=== PATIENT | male | born 1975 | race Caucasian/White ===

== ENCOUNTER 2019-12-04 03:02 | Outpatient (CLI) | payer OTHER, SELFPAY ==
[2019-12-05 09:10] LABS: CEA 13.3 ng/mL (See Note)
== END 2019-12-04 03:22 ==
PROVIDERS: Visit Provider Internal Medicine
DX: Z12.11 Encounter for screening for malignant neoplasm of colon (principal)
CPT/HCPCS: 36415; 82378

== ENCOUNTER 2020-05-28 14:19 | Emergency (ER) | payer OTHER, SELFPAY ==
[2020-05-28] VITALS (26 sets, daily range): BP systolic 113–136; BP diastolic 55–72; PULSE 72–94; RESP 13–20; TEMP 36.7; O2SAT 94–100
--- NOTE | 2020-05-28 14:15 | RT.EKG_ITS ---
APPROVED REPORT Exam: Resting ECG Patient Location: E HR:90 bpm ECG Measurements Heart Rate 90 AXIS IA 139 P 47 QRSd 104 QRS -24 QT 363 T -5 QTc 444 Conclusion Sinus rhythm...normal P axis, V-rate 60- 99 Probable left ventricular hypertrophy...multiple LVH criteria
--- NOTE | 2020-05-28 14:45 | DI.CT_ITS ---
EXAM: CT CHEST PE CTA CLINICAL HISTORY: stage 4 cancer, chest tightness, dizzy, syncope. TECHNIQUE: Imaging Protocol: CT angiography of the chest was performed using pulmonary embolus jessee col. Multi planar reconstructions were performed. CONTRAST MATERIAL: Intravenous: Omnipaque 350 Contrast volume: 100 cc COMPARISON: No exams were available for comparison FINDINGS: CHEST: Distal tip of the right supraclinoid in Port-A-Cath is in the upper right atrium PULMONARY ARTERIES: There are no intraluminal filling defects to suggest acute pulmonary emboli. LUNGS: There are no infiltrates nor evidence of pulmonary infarction.. However, there is a pleural ba sed noncalcified 8 x 7 millimeter nodule in the lingular segment the left lung. No other pulmonary n odules nor pleural effusions. Dependent increased markings are noted both lung bases. No focal find ings in the trachea mainstem bronchi. There are no pleural effusions. MEDIASTINUM: There is no hilar nor mediastinal adenopathy. Visualized thyroid contains a small nodule anteriorly in the right lobe. There entire thyroid is not included in the field of view. CARDIAC: Heart size is normal. There is no pericardial effusion.Caliber of the thoracic aorta is wit hin normal limits. There is an anatomic variant here in that the left vertebral artery originates as an independent vessel off the aortic arch instead of originating off of the left subclavian artery. It arises just proximal to the left subclavian artery takeoff point. There is no evidence of shift o f the interventricular septum. PARTIALLY VISUALIZED UPPERMOST ABDOMEN: No obvious findings OSSEOUS: No significant osseous lesions.. IMPRESSION: 1. No evidence of acute pulmonary emboli. No evidence of pulmonary infarction.No pleural effusions. 2. There is a pleural based 8 millimeter nodule in the lingular segment of the left lung. Given the history. This is suspicious for a possible metastatic lesion priors appropriate follow-up. There ar e no other focal pulmonary nodules. There are no pleural effusions 3. Port-A-Cath in place. Distal tip is in the upper right atrium. RADIATION DOSE DELIVERED: LINK-TO-SR Total DLP DATA REPOSITORY: All CT scans at this facility are submitted to the National Radiology Data Registry (NRDR) Dose Index Registry (DIR) with the [employer] (ACR). RADIATION OPTIMIZATION: All CT scans at this facility use at least one of these dose optimization te chniques: automated exposure control; mA and/or kV adjustment per patient size (includes targeted exa ms where dose is matched to clinical indication); or iterative reconstruction.
[2020-05-28 15:01] LABS: Abs Immature Grans 0.03 10^3/uL (0.0-0.06); Absolute Basophil Count 0.01 10^3/uL (0.0-0.2); Absolute Eosinophil Count 0.01 10^3/uL (0.0-0.7); Absolute Lymphocyte Count 2.26 10^3/uL (1.2-3.4); Absolute Monocyte Count 0.52 10^3/uL (0.1-0.8); Absolute Neutrophil Count 5.13 10^3/uL (1.2-6.7); Basophils % 0.1; Eosinophils % 0.1; HCT 24.4 % (40.0-50.0); HGB 7.3 g/dL (13.5-17.5); Immature Grans % 0.4; Lymphocytes % 28.4; MCH 28.5 pg (27.0-33.0); MCHC 29.9 % (32.0-36.0); MCV 95.3 fL (80-95); MPV 8.8 fL (8.0-11.0); Monocytes % 6.5; Neutrophils % 64.5; Nucleated RBC 0 %; Platelet Count 288 10^3/uL (130-400); RBC 2.56 10^6/uL (4.36-5.78); RDW 18.7 % (11.8-14.1); WBC 7.96 10^3/uL (4.4-10.8)
[2020-05-28 15:12] LABS: Diff Comment RBC Morph Reviewed
[2020-05-28 15:13] LABS: Anisocytosis 2+; Hypochromasia 2+; Microcytosis 2+
[2020-05-28 15:23] LABS: ALT 24 U/L (16-63); AST 17 U/L (15-37); Albumin 2.7 g/dL (3.4-5.0); Alkaline Phosphatase 50 U/L (46-116); Anion Gap 7.7 mmol/L (3-11); BUN 30 mg/dL (7-18); Bilirubin, Total 0.5 mg/dL (0.2-1.0); CO2 27.3 mmol/L (21.0-32.0); CREATININE 1.41 mg/dL (0.70-1.30); Calcium 8.6 mg/dL (8.5-10.1); Chloride 108 mmol/L (98-107); Estimated GFR 54.11 (mL/min/1.73m2); Glucose 95 mg/dL (74-106); Sodium 143 mmol/L (136-145); Total Protein 5.7 g/dL (6.4-8.2)
[2020-05-28 15:35] LABS: Troponin I < 0.05 ng/mL (<0.06)
[2020-05-28] MEDS: Omnipaque 350 MG/ML 100 ML BTL IJ (16:07)
[2020-05-28] MEDS: Normal Saline - Diluent 50 ML VIAL IV (16:08)
--- NOTE | 2020-05-28 16:32 | DI.VRAD_ITS ---
PROCEDURE INFORMATION: Exam: CT Angiography Chest With Contrast Exam date and time: 05/28/2020 3:58 PM Age: 44 years old Clinical indication: Patient HX: Stage 4 cancer, chest tightness, dizzy, syncope TECHNIQUE: Imaging protocol: Computed tomographic angiography of the chest with intravenous contrast. 3D rendering (Not supervised by radiologist): MIP and/or 3D reconstructed images were created by the technologist. COMPARISON: No relevant prior studies available. FINDINGS: Pulmonary arteries: Contrast fills the pulmonary artery and its branch vessels satisfactorily. No intraluminal filling defect to suggest pulmonary embolism. Aorta: Unremarkable. No aortic aneurysm. No aortic dissection. Lungs: Lower lobe dependent posterior atelectasis. Pleural space: Lingular pleural-based anterolateral 8 mm pulmonary nodule best seen on series 9, image 31. No pleural effusion or pneumothorax. Heart: Unremarkable. No cardiomegaly. No pericardial effusion. Lymph nodes: Unremarkable. No enlarged lymph nodes. Bones/joints: Unremarkable. No acute fracture. Soft tissues: Right upper chest wall Port-A-Cath with its tip in the distal SVC.. IMPRESSION: 1. No pulmonary embolism. 2. An 8 mm lingular pulmonary nodule suspicious for metastasis. Dictated and Authenticated by: Garcia Morrow MD. Ordering:TENISHA Stone MD
--- NOTE | 2020-05-28 16:44 | W.ED.GENAD ---
Discharge Plan Disposition Patient Disposition: [facility] Condition: Serious Discharge Details Clinical Impression: Anemia, Syncope, Chest pain Primary Care Provider: None,None ED Provider: Chase Lira Home Meds and New Rx's Prescriptions: No Action bupropion HCl [Wellbutrin SR] 150 mg Tablet Sustained-Release 12 Hr 150 mg PO BID RF: 0 diphenoxylate-atropine [Lomotil] 2.5-0.025 mg Tablet 2 tab PO QID PRNRF: 0 lisinopril 10 mg Tablet 20 mg PO QAM RF: 0 lorazepam [Ativan] 1 mg Tablet 1 mg PO TID RF: 0 magnesium 250 mg Tablet 250 mg PO BID RF: 0 multivitamin Tablet 1 tab PO DAILY RF: 0 oxycodone [Roxicodone] 5 mg Tablet 5 - 10 mg PO Q4H PRNRF: 0 prochlorperazine maleate [Compazine] 10 mg Tablet 10 mg PO Q6H PRNRF: 0 rosuvastatin [Crestor] 20 mg Tablet 20 mg PO HS RF: 0 ruxolitinib 10 mg Tablet 10 mg PO BID RF: 0 sertraline 50 mg Tablet 50 mg PO DAILY RF: 0 zolpidem [Ambien] 5 mg Tablet 5 mg PO HS PRNRF: 0 Discharge Data Discharge Date/Time-TO BE ENTERED AT DEPARTURE: 05/28/20 18:35 Medical Decision Making 44-year-old male with history of stage IV colon cancer, recurrent, 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 Patient had an episode of chest discomfort after the syncope. Chest pain now resolved. Patient is hemodynamically stable. Screening ECG was reviewed and interpreted by me: Please see report, sinus rhythm 90 bpm, LVH, no STEMI, nondiagnostic. Initial troponin negative. Considered acute life-threatening pulmonary embolism. CT of the chest was reviewed and interpreted by radiology:FINDINGS: Pulmonary arteries: Contrast fills the pulmonary artery and its branch vessels satisfactorily. No intraluminal filling defect to suggest pulmonary embolism. Aorta: Unremarkable. No aortic aneurysm. No aortic dissection. Lungs: Lower lobe dependent posterior atelectasis. Pleural space: Lingular pleural-based anterolateral 8 mm pulmonary nodule best seen on series 9, image 31. No pleural effusion or pneumothorax. Heart: Unremarkable. No cardiomegaly. No pericardial effusion. Lymph nodes: Unremarkable. No enlarged lymph nodes. Bones/joints: Unremarkable. No acute fracture. Soft tissues: Right upper chest wall Port-A-Cath with its tip in the distal SVC.. IMPRESSION: 1. No pulmonary embolism. 2. An 8 mm lingular pulmonary nodule suspicious for metastasis. Screening labs reviewed and anemia with hemoglobin of 7.3 noted. Consider symptomatic anemia. I called and spoke with oncologist [facility] discussed [place] presentation and course, she recommended transfusion 1 unit of PRBCs. She notes PVCs must be irradiated given prior transfusion. Unfortunately [facility] does not have irradiated PRBCs available until Monday. I discussed this with on-call oncologist who recommends attempting to identify another local hospital who can provide transfusion. I called and spoke with [facility] ED physician, Dr. Tyler, who notes [facility] does not currently have irradiated blood. I called and spoke with [facility] ED physician, Dr. Felix, who notes that [place] does have 1 unit of irradiated PRBCs and will accept the patient in transfer to assume care of the patient and plan to provide required transfusion. I spoke with patient about results and plan and he is in agreement and consents to transfer. Lab Data Lab results reviewed: Yes I reviewed the patient's lab results. Lab results narrative: Laboratory Tests Range/Units 05/28/20 05/28/20 14:45 14:45 WBC (4.4-10.8) 10^3/uL 7.96 RBC (4.36-5.78) 10^6/uL 2.56 L Hgb (13.5-17.5) g/dL 7.3 L Hct (40.0-50.0) % 24.4 L MCV (80-95) fL 95.3 H MCH (27.0-33.0) pg 28.5 MCHC (32.0-36.0) % 29.9 L RDW (11.8-14.1) % 18.7 H Plt Count (130-400) 10^3/uL 288 MPV (8.0-11.0) fL 8.8 Immature Gran % 0.4 Neutrophils % 64.5 Lymphocytes % 28.4 Monocytes % 6.5 Eosinophils % 0.1 Basophils % 0.1 Nucleated RBC % % 0 Absolute Neutrophils (1.2-6.7) 10^3/uL 5.13 Absolute Lymphocytes (1.2-3.4) 10^3/uL 2.26 Absolute Monocytes (0.1-0.8) 10^3/uL 0.52 Absolute Eosinophils (0.0-0.7) 10^3/uL 0.01 Absolute Basophils (0.0-0.2) 10^3/uL 0.01 RBC Morphology See below Hypochromasia 2+ Anisocytosis 2+ Microcytosis 2+ Sodium (136-145) mmol/L 143 Potassium (3.5-5.1) mmol/L 4.0 Chloride (98-107) mmol/L 108 H Carbon Dioxide (21.0-32.0) mmol/L 27.3 Anion Gap (3-11) mmol/L 7.7 BUN (7-18) mg/dL 30 H Creatinine (0.70-1.30) mg/dL 1.41 H Estimated GFR/1.73 m2 (mL/min/1.73m2) 54.11 Glucose (74-106) mg/dL 95 Calcium (8.5-10.1) mg/dL 8.6 Total Bilirubin (0.2-1.0) mg/dL 0.5 AST (15-37) U/L 17 ALT (16-63) U/L 24 Alkaline Phosphatase (46-116) U/L 50 Troponin I (<0.06) ng/mL < 0.05 Total Protein (6.4-8.2) g/dL 5.7 L Albumin (3.4-5.0) g/dL 2.7 L HPI General Mode of arrival: ambulatory. Date/Time Provider Initiated Documentation: 05/28/20 14:20. Limitations to Documentation: no limitations. Information obtained by: patient. 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 Patient was completing his 46-hour course of chemotherapy and at the cancer treatment center for discontinuation, he felt dizzy and collapsed. Syncopal episode was brief. Severe. No modifiers. Patient notes that after the episode he had mild chest discomfort described as tightness that has since resolved prior to arrival. He denies shortness of breath or chest pain at this time. No abdominal pain. No leg swelling. Related Data Home Medications Medication Instructions Recorded Confirmed bupropion HCl [Wellbutrin SR] 150 mg PO BID 05/28/20 05/28/20 diphenoxylate-atropine [Lomotil] 2 tab PO QID PRN 05/28/20 05/28/20 lisinopril 20 mg PO QAM 05/28/20 05/28/20 lorazepam [Ativan] 1 mg PO TID 05/28/20 05/28/20 magnesium 250 mg PO BID 05/28/20 05/28/20 multivitamin 1 tab PO DAILY 05/28/20 05/28/20 oxycodone [Roxicodone] 5 - 10 mg PO Q4H PRN 05/28/20 05/28/20 prochlorperazine maleate 10 mg PO Q6H PRN 05/28/20 05/28/20 [Compazine] rosuvastatin [Crestor] 20 mg PO HS 05/28/20 05/28/20 ruxolitinib 10 mg PO BID 05/28/20 05/28/20 sertraline 50 mg PO DAILY 05/28/20 05/28/20 zolpidem [Ambien] 5 mg PO HS PRN 05/28/20 05/28/20 Allergies Allergy/AdvReac Type Severity Reaction Status Date / Time No Known Allergies Allergy Unverified 05/28/20 14:27 General Stated Complaint: Dizzy/Sync JAIMIE: 2 Review of Systems All systems reviewed & are unremarkable except as noted in HPI and below Constitutional Constitutional: Denies fever(s) Cardiovascular Cardiovascular: Denies chest pain and Denies dyspnea Respiratory Respiratory: Denies dyspnea [facility] History Colon cancer Surgical History Bone marrow replaced by transplant Social History Smoking/Tobacco Use Status: Never Smoking risk assessment performed?: Yes Alcohol Intake: current Alcohol Intake frequency: holidays/special occasions only Substance use type: marijuana Details: medical marijuana Do you feel safe at home: Yes Do you feel safe in your relationship?: Yes Exam Const General: cooperative and no acute distress HENMT Mouth: moist mucous membranes Eyes Conjunctivae: normal conjunctivae Sclera: normal sclerae Neck Neck: trachea midline and supple Resp Auscultation: clear to auscultation bilaterally, no rales, no rhonchi and no wheezes Cardio Jugular venous pressure: no JVD Rate: regular rate and not tachycardic Rhythm: regular rhythm GI Palpation: soft, not firm, no guarding, no masses, not rigid and nontender Skin General skin exam: no rashes or lesions noted Neuro General: patient alert, patient awake, patient oriented x3 and tone normal Extrem General: no calf tenderness and no edema Psych Appearance: grossly normal Mental Status: mental status grossly normal Speech and Movement: speech and movement normal Course Vital Signs Vital signs: Vital Signs Temperature 36.7 C 05/28/20 14:19 Pulse 90 05/28/20 14:19 Respiratory Rate 14 05/28/20 14:19 Blood Pressure 136/69 05/28/20 14:19 Pulse Oximetry 97 05/28/20 14:19 Temperature 36.7 C 05/28/20 14:19 Temperature Source Skin 05/28/20 14:19 Pulse 77 05/28/20 16:09 Pulse 78 05/28/20 16:15 Respiratory Rate 16 05/28/20 16:15 Respiratory Effort Non-Labored 05/28/20 14:31 Respiratory Depth Normal 05/28/20 14:31 Respiratory Pattern Normal 05/28/20 14:31 Blood Pressure 118/62 05/28/20 16:09 Blood Pressure Mean 74 05/28/20 16:09 Pulse Oximetry 96 05/28/20 16:15 Oxygen Delivery Method Room Air 05/28/20 14:19 Oxygen Flow Rate 0 05/28/20 14:19 Pain Level 0 05/28/20 14:19 Lab/Test Results Lab/Test Results: Laboratory Tests Range/Units 05/28/20 05/28/20 14:45 14:45 WBC (4.4-10.8) 10^3/uL 7.96 RBC (4.36-5.78) 10^6/uL 2.56 L Hgb (13.5-17.5) g/dL 7.3 L Hct (40.0-50.0) % 24.4 L MCV (80-95) fL 95.3 H MCH (27.0-33.0) pg 28.5 MCHC (32.0-36.0) % 29.9 L RDW (11.8-14.1) % 18.7 H Plt Count (130-400) 10^3/uL 288 MPV (8.0-11.0) fL 8.8 Immature Gran % 0.4 Neutrophils % 64.5 Lymphocytes % 28.4 Monocytes % 6.5 Eosinophils % 0.1 Basophils % 0.1 Nucleated RBC % % 0 Absolute Neutrophils (1.2-6.7) 10^3/uL 5.13 Absolute Lymphocytes (1.2-3.4) 10^3/uL 2.26 Absolute Monocytes (0.1-0.8) 10^3/uL 0.52 Absolute Eosinophils (0.0-0.7) 10^3/uL 0.01 Absolute Basophils (0.0-0.2) 10^3/uL 0.01 RBC Morphology See below Hypochromasia 2+ Anisocytosis 2+ Microcytosis 2+ Sodium (136-145) mmol/L 143 Potassium (3.5-5.1) mmol/L 4.0 Chloride (98-107) mmol/L 108 H Carbon Dioxide (21.0-32.0) mmol/L 27.3 Anion Gap (3-11) mmol/L 7.7 BUN (7-18) mg/dL 30 H Creatinine (0.70-1.30) mg/dL 1.41 H Estimated GFR/1.73 m2 (mL/min/1.73m2) 54.11 Glucose (74-106) mg/dL 95 Calcium (8.5-10.1) mg/dL 8.6 Total Bilirubin (0.2-1.0) mg/dL 0.5 AST (15-37) U/L 17 ALT (16-63) U/L 24 Alkaline Phosphatase (46-116) U/L 50 Troponin I (<0.06) ng/mL < 0.05 Total Protein (6.4-8.2) g/dL 5.7 L Albumin (3.4-5.0) g/dL 2.7 L
[2020-05-28 18:16] LABS: Troponin I < 0.05 ng/mL (<0.06)
== END 2020-05-28 18:35 | disposition short-term general hospital (02) ==
PROVIDERS: Emergency Provider Student in an Organized Health Care Education/Training Program
DX: R55 Syncope and collapse (principal); R07.89 Other chest pain; R91.1 Solitary pulmonary nodule; D64.9 Anemia, unspecified; C18.9 Malignant neoplasm of colon, unspecified; Z79.899 Other long term (current) drug therapy; Z45.2 Encounter for adjustment and management of vascular access device; Z94.81 Bone marrow transplant status
CPT/HCPCS: 36591; 71275; 80053; 86850; 86900; 86901; 93005; 99285; 84484; 85025; 93010; J3490

== ENCOUNTER 2020-09-07 12:20 | Outpatient (CLI) | payer OTHER, SELFPAY ==
[2020-09-07 12:46] LABS: Abs Immature Grans 0.02 10^3/uL (0.0-0.06); Absolute Basophil Count 0.01 10^3/uL (0.0-0.2); Absolute Eosinophil Count 0.02 10^3/uL (0.0-0.7); Absolute Lymphocyte Count 2.07 10^3/uL (1.2-3.4); Absolute Monocyte Count 0.63 10^3/uL (0.1-0.8); Absolute Neutrophil Count 2.13 10^3/uL (1.2-6.7); Basophils % 0.2; Eosinophils % 0.4; HCT 26.6 % (40.0-50.0); HGB 8.9 g/dL (13.5-17.5); Immature Grans % 0.4; Lymphocytes % 42.4; MCHC 33.5 % (32.0-36.0); MCV 89.6 fL (80-95); MPV 8.8 fL (8.0-11.0); Monocytes % 12.9; Neutrophils % 43.7; Nucleated RBC 0 %; Platelet Count 190 10^3/uL (130-400); RBC 2.97 10^6/uL (4.36-5.78); RDW-SD 48.8 fL; WBC 4.88 10^3/uL (4.4-10.8)
[2020-09-07 13:00] LABS: Diff Comment Diff Reviewed; RBC Morphology Normal
== END 2020-09-07 12:21 | disposition home or self-care (01) ==
LOC: LBO 12:23
PROVIDERS: Referring Provider Internal Medicine Hematology & Oncology; Visit Provider Internal Medicine Hematology & Oncology
DX: C20 Malignant neoplasm of rectum (principal); C78.00 Secondary malignant neoplasm of unspecified lung
CPT/HCPCS: 36415; 86900; 86901; 85025

== ENCOUNTER 2021-02-16 14:13 | Outpatient (RCR) | payer OTHER, SELFPAY ==
[2021-02-16] MEDS: Normal Saline Flush 10 ML SYR IVP (14:26)
[2021-02-16] MEDS: Heparin 500 UNITS/5 ML SYRINGE IV (14:26)
[2021-02-16 14:34] LABS: HCT 28.3 % (40.0-50.0); HGB 9.5 g/dL (13.5-17.5); MCH 30.4 pg (27.0-33.0); MCHC 33.6 % (32.0-36.0); MCV 90.4 fL (80-95); MPV 9.5 fL (8.0-11.0); Nucleated RBC 0 %; Platelet Count 136 10^3/uL (130-400); RBC 3.13 10^6/uL (4.36-5.78); RDW 14.9 % (11.8-14.1); RDW-SD 47.9 fL; WBC 6.22 10^3/uL (4.4-10.8)
[2021-02-16 14:48] LABS: Absolute Lymphocyte Count 1.43 10^3/uL (1.2-3.4); Absolute Neutrophil Count 4.73 10^3/uL (1.2-6.7)
[2021-02-16 14:49] LABS: Absolute Monocyte Count 0.06 10^3/uL (0.1-0.8); Diff Comment Manual Differential; RBC Morphology Normal
== END 2021-02-25 23:59 | disposition home or self-care (01) ==
LOC: INF 14:13
PROVIDERS: Visit Provider Internal Medicine Hematology & Oncology
DX: C20 Malignant neoplasm of rectum (principal); C78.00 Secondary malignant neoplasm of unspecified lung; Z45.2 Encounter for adjustment and management of vascular access device
CPT/HCPCS: 36591; 86850; 86900; 86901; 85025

== ENCOUNTER 2021-03-17 01:25 | Outpatient (RCR) | payer OTHER, SELFPAY ==
[2021-03-03] MEDS: Heparin 500 UNITS/5 ML SYRINGE IV (08:13)
[2021-03-03] MEDS: Normal Saline Flush 10 ML SYR IVP (08:13)
[2021-03-03 08:41] LABS: Abs Immature Grans 0.18 10^3/uL (0.0-0.06); Absolute Basophil Count 0.03 10^3/uL (0.0-0.2); Absolute Eosinophil Count 0.13 10^3/uL (0.0-0.7); Absolute Lymphocyte Count 2.16 10^3/uL (1.2-3.4); Absolute Monocyte Count 1.33 10^3/uL (0.1-0.8); Basophils % 0.3; Eosinophils % 1.1; HCT 30.1 % (40.0-50.0); HGB 9.6 g/dL (13.5-17.5); Immature Grans % 1.6; Lymphocytes % 18.9; MCH 29.8 pg (27.0-33.0); MCHC 31.9 % (32.0-36.0); MCV 93.5 fL (80-95); Monocytes % 11.6; Neutrophils % 66.5; Nucleated RBC 0 %; Platelet Count 371 10^3/uL (130-400); RBC 3.22 10^6/uL (4.36-5.78); RDW 15.7 % (11.8-14.1); RDW-SD 53.2 fL; WBC 11.45 10^3/uL (4.4-10.8)
[2021-03-03 08:47] LABS: ALT 46 U/L (16-63); AST 23 U/L (15-37); Albumin 3.7 g/dL (3.4-5.0); Alkaline Phosphatase 71 U/L (46-116); Anion Gap 6.5 mmol/L (3-11); BUN 24 mg/dL (7-18); Bilirubin, Total 0.4 mg/dL (0.2-1.0); CO2 28.5 mmol/L (21.0-32.0); CREATININE 3.2 mg/dL (0.70-1.30); Calcium 9.2 mg/dL (8.5-10.1); Chloride 107 mmol/L (98-107); Estimated GFR 20.92 (mL/min/1.73m2); Glucose 96 mg/dL (74-106); Potassium 4.7 mmol/L (3.5-5.1); Sodium 142 mmol/L (136-145); Total Protein 6.8 g/dL (6.4-8.2)
[2021-03-03 08:48] LABS: Absolute Neutrophil Count 7.61 10^3/uL (1.2-6.7)
[2021-03-03 18:04] LABS: CEA 2.4 ng/mL (See Note)
[2021-03-10 10:35] LABS: Abs Immature Grans 0.03 10^3/uL (0.0-0.06); Absolute Basophil Count 0.02 10^3/uL (0.0-0.2); Absolute Eosinophil Count 0.03 10^3/uL (0.0-0.7); Absolute Lymphocyte Count 1.44 10^3/uL (1.2-3.4); Absolute Monocyte Count 0.17 10^3/uL (0.1-0.8); Absolute Neutrophil Count 5.81 10^3/uL (1.2-6.7); Basophils % 0.3; Eosinophils % 0.4; HCT 26.8 % (40.0-50.0); HGB 8.5 g/dL (13.5-17.5); Immature Grans % 0.4; Lymphocytes % 19.2; MCH 30.1 pg (27.0-33.0); MCHC 31.7 % (32.0-36.0); MPV 8.6 fL (8.0-11.0); Monocytes % 2.3; Neutrophils % 77.4; Nucleated RBC 0 %; Platelet Count 212 10^3/uL (130-400); RBC 2.82 10^6/uL (4.36-5.78)
[2021-03-10 10:48] LABS: ALT 48 U/L (16-63); AST 28 U/L (15-37); Albumin 3.7 g/dL (3.4-5.0); Alkaline Phosphatase 98 U/L (46-116); Anion Gap 10.2 mmol/L (3-11); BUN 46 mg/dL (7-18); Bilirubin, Total 0.5 mg/dL (0.2-1.0); CO2 24.8 mmol/L (21.0-32.0); CREATININE 3.1 mg/dL (0.70-1.30); Calcium 9.5 mg/dL (8.5-10.1); Chloride 105 mmol/L (98-107); Estimated GFR 21.71 (mL/min/1.73m2); Glucose 113 mg/dL (74-106); Potassium 5.2 mmol/L (3.5-5.1); Sodium 140 mmol/L (136-145); Total Protein 7.6 g/dL (6.4-8.2)
[2021-03-10 11:02] LABS: RBC Morphology Normal
[2021-03-10 11:03] LABS: Diff Comment RBC Morph Reviewed
[2021-03-10 17:10] LABS: CEA 2.3 ng/mL (See Note)
[2021-03-16 09:18] LABS: Abs Immature Grans 0.02 10^3/uL (0.0-0.06); Absolute Basophil Count 0.03 10^3/uL (0.0-0.2); Absolute Eosinophil Count 0.08 10^3/uL (0.0-0.7); Absolute Lymphocyte Count 1.69 10^3/uL (1.2-3.4); Absolute Monocyte Count 0.59 10^3/uL (0.1-0.8); Basophils % 0.5; Eosinophils % 1.5; HCT 26.7 % (40.0-50.0); HGB 8.6 g/dL (13.5-17.5); Immature Grans % 0.4; Lymphocytes % 30.7; MCH 29.7 pg (27.0-33.0); MCHC 32.2 % (32.0-36.0); MCV 92.1 fL (80-95); MPV 9.3 fL (8.0-11.0); Monocytes % 10.7; Neutrophils % 56.2; Nucleated RBC 0 %; Platelet Count 182 10^3/uL (130-400); RDW 14.7 % (11.8-14.1); RDW-SD 49.2 fL; WBC 5.51 10^3/uL (4.4-10.8)
[2021-03-16 09:33] LABS: ALT 31 U/L (16-63); AST 17 U/L (15-37); Albumin 3.6 g/dL (3.4-5.0); Alkaline Phosphatase 80 U/L (46-116); Anion Gap 8.7 mmol/L (3-11); BUN 38 mg/dL (7-18); Bilirubin, Total 0.3 mg/dL (0.2-1.0); CO2 25.3 mmol/L (21.0-32.0); CREATININE 2.3 mg/dL (0.70-1.30); Calcium 8.9 mg/dL (8.5-10.1); Chloride 107 mmol/L (98-107); Estimated GFR 30.63 (mL/min/1.73m2); Glucose 100 mg/dL (74-106); Potassium 4.8 mmol/L (3.5-5.1); Sodium 141 mmol/L (136-145); Total Protein 6.7 g/dL (6.4-8.2)
[2021-03-17 08:31] VITALS: BP 94/58; PULSE 85; RESP 17; TEMP 36.2; O2SAT 99
[2021-03-17] MEDS: Normal Saline Flush 10 ML SYR IVP (08:36)
[2021-03-17] MEDS: Heparin 500 UNITS/5 ML SYRINGE IV (08:36)
[2021-03-17 08:42] VITALS: BP 96/58; PULSE 85; RESP 17; TEMP 36.1; O2SAT 98
[2021-03-17 08:45] VITALS: BP 96/58; PULSE 85; RESP 18; TEMP 36.1; O2SAT 98
[2021-03-17 08:57] VITALS: BP 93/53; PULSE 79; RESP 17; TEMP 36.2; O2SAT 99
[2021-03-17 09:27] VITALS: BP 96/61; PULSE 74; RESP 17; TEMP 36.4; O2SAT 99
[2021-03-17 10:27] VITALS: BP 100/63; PULSE 74; RESP 17; TEMP 36.6; O2SAT 99
== END 2021-03-28 23:59 | disposition home or self-care (01) ==
LOC: INF 01:25
PROVIDERS: Visit Provider Internal Medicine Hematology & Oncology
DX: D64.9 Anemia, unspecified (principal); C20 Malignant neoplasm of rectum; C78.00 Secondary malignant neoplasm of unspecified lung; Z45.2 Encounter for adjustment and management of vascular access device
CPT/HCPCS: 36415; 36430; 36591; 80053; 86850; 86900; 86901; 86920; 86945; 82378; 85025; P9016

== ENCOUNTER 2021-05-27 11:00 | Outpatient (RCR) | payer OTHER, SELFPAY ==
[2021-05-27] MEDS: Heparin 500 UNITS/5 ML SYRINGE (10:23)
[2021-05-27] MEDS: Normal Saline Flush 10 ML SYR IVP (10:25)
[2021-05-27 10:57] LABS: Iron 80 ug/dL (65-175); Total Iron Binding Capacity 313 ug/dL (250-450); Transferrin Sat 26 % (20-55)
[2021-05-27 11:21] LABS: Vitamin B12 517 pg/mL (193-986)
[2021-05-27 11:25] LABS: Ferritin 1250 ng/mL (26-388)
[2021-05-27 17:03] LABS: CREATININE 1.7 mg/dL (0.70-1.30); Estimated GFR 43.42 (mL/min/1.73m2)
== END 2021-05-28 23:59 | disposition home or self-care (01) ==
LOC: INF 11:00
PROVIDERS: Visit Provider Internal Medicine Hematology & Oncology
DX: D64.9 Anemia, unspecified (principal); N17.9 Acute kidney failure, unspecified; Z45.2 Encounter for adjustment and management of vascular access device
CPT/HCPCS: 36591; 82565; 82607; 82728; 83540; 83550

== ENCOUNTER 2021-06-24 14:24 | Outpatient (RCR) | payer OTHER, SELFPAY ==
[2021-06-24] MEDS: Heparin 500 UNITS/5 ML SYRINGE (14:34)
[2021-06-24] MEDS: Normal Saline Flush 10 ML SYR IVP (14:40)
[2021-06-24 14:59] LABS: ALT 17 U/L (16-63); AST 6 U/L (15-37); Albumin 3.7 g/dL (3.4-5.0); Alkaline Phosphatase 50 U/L (46-116); Anion Gap 8.6 mmol/L (3-11); BUN 24 mg/dL (7-18); Bilirubin, Total 0.3 mg/dL (0.2-1.0); CO2 26.4 mmol/L (21.0-32.0); CREATININE 1.4 mg/dL (0.70-1.30); Calcium 8.7 mg/dL (8.5-10.1); Chloride 107 mmol/L (98-107); Estimated GFR 54.32 (mL/min/1.73m2); Glucose 114 mg/dL (74-106); Sodium 142 mmol/L (136-145); Total Protein 6.4 g/dL (6.4-8.2)
== END 2021-06-28 23:59 | disposition home or self-care (01) ==
LOC: INF 14:24
PROVIDERS: Visit Provider Internal Medicine Hematology & Oncology
DX: C20 Malignant neoplasm of rectum (principal); C78.00 Secondary malignant neoplasm of unspecified lung; Z45.2 Encounter for adjustment and management of vascular access device
CPT/HCPCS: 36591; 80053

== ENCOUNTER 2021-07-21 00:58 | Outpatient (RCR) | payer OTHER, SELFPAY ==
[2021-07-21] MEDS: Normal Saline Flush 10 ML SYR IVP (15:13)
[2021-07-21] MEDS: Heparin 500 UNITS/5 ML SYRINGE (15:14)
[2021-07-21 15:32] LABS: Abs Immature Grans 0.01 10^3/uL (0.0-0.06); Absolute Basophil Count 0.01 10^3/uL (0.0-0.2); Absolute Eosinophil Count 0.04 10^3/uL (0.0-0.7); Absolute Lymphocyte Count 1.88 10^3/uL (1.2-3.4); Absolute Monocyte Count 0.39 10^3/uL (0.1-0.8); Absolute Neutrophil Count 1.96 10^3/uL (1.2-6.7); Basophils % 0.2; Eosinophils % 0.9; HCT 32.1 % (40.0-50.0); HGB 10.4 g/dL (13.5-17.5); Immature Grans % 0.2; Lymphocytes % 43.8; MCH 30.5 pg (27.0-33.0); MCHC 32.4 % (32.0-36.0); MCV 94.1 fL (80-95); MPV 8.6 fL (8.0-11.0); Monocytes % 9.1; Neutrophils % 45.8; Nucleated RBC 0 %; Platelet Count 216 10^3/uL (130-400); RBC 3.41 10^6/uL (4.36-5.78); RDW 14.6 % (11.8-14.1); RDW-SD 49.6 fL; WBC 4.29 10^3/uL (4.4-10.8)
[2021-07-21 15:49] LABS: ALT 26 U/L (16-63); AST 11 U/L (15-37); Albumin 3.6 g/dL (3.4-5.0); Alkaline Phosphatase 51 U/L (46-116); Anion Gap 7.5 mmol/L (3-11); BUN 27 mg/dL (7-18); Bilirubin, Total 0.3 mg/dL (0.2-1.0); CO2 25.5 mmol/L (21.0-32.0); CREATININE 1.3 mg/dL (0.70-1.30); Calcium 8.9 mg/dL (8.5-10.1); Chloride 108 mmol/L (98-107); Estimated GFR 59.17 (mL/min/1.73m2); Glucose 120 mg/dL (74-106); Potassium 4.2 mmol/L (3.5-5.1); Sodium 141 mmol/L (136-145); Total Protein 6.4 g/dL (6.4-8.2)
== END 2021-07-26 23:59 | disposition home or self-care (01) ==
LOC: INF 00:58
PROVIDERS: Visit Provider Internal Medicine Hematology & Oncology
DX: Z45.2 Encounter for adjustment and management of vascular access device (principal); D64.9 Anemia, unspecified; C20 Malignant neoplasm of rectum; C78.00 Secondary malignant neoplasm of unspecified lung
CPT/HCPCS: 36591; 80053; 85025

== ENCOUNTER 2022-01-17 03:26 | Outpatient (RCR) | payer OTHER, SELFPAY ==
[2022-01-17] MEDS: Normal Saline Flush 10 ML SYR IVP (11:28)
[2022-01-17] MEDS: Heparin 500 UNITS/5 ML SYRINGE IV (11:28)
[2022-01-17 11:35] LABS: Abs Immature Grans 0.02 10^3/uL (0.0-0.06); Absolute Basophil Count 0.02 10^3/uL (0.0-0.2); Absolute Eosinophil Count 0.13 10^3/uL (0.0-0.7); Absolute Lymphocyte Count 1.42 10^3/uL (1.2-3.4); Absolute Monocyte Count 0.47 10^3/uL (0.1-0.8); Basophils % 0.4; Eosinophils % 2.7; HCT 30.7 % (40.0-50.0); HGB 9.8 g/dL (13.5-17.5); Immature Grans % 0.4; Lymphocytes % 29.8; MCH 28.4 pg (27.0-33.0); MCHC 31.9 % (32.0-36.0); MCV 89 fL (80-95); MPV 8.8 fL (8.0-11.0); Monocytes % 9.9; Neutrophils % 56.8; Platelet Count 292 10^3/uL (130-400); RBC 3.45 10^6/uL (4.36-5.78); RDW 15.6 % (11.8-14.1); RDW-SD 49.4 fL; WBC 4.76 10^3/uL (4.4-10.8)
[2022-01-17 11:59] LABS: ALT 33 U/L (16-63); AST 24 U/L (15-37); Albumin 3.6 g/dL (3.4-5.0); Alkaline Phosphatase 61 U/L (46-116); BUN 22 mg/dL (7-18); Bilirubin, Total 0.3 mg/dL (0.2-1.0); CREATININE 1.6 mg/dL (0.70-1.30); Calcium 8.9 mg/dL (8.5-10.1); Chloride 108 mmol/L (98-107); Estimated GFR 46.37 (mL/min/1.73m2); Glucose 167 mg/dL (74-106); Potassium 3.7 mmol/L (3.5-5.1); Sodium 143 mmol/L (136-145); Total Protein 6.7 g/dL (6.4-8.2)
== END 2022-01-26 23:59 | disposition home or self-care (01) ==
LOC: INF 03:26
PROVIDERS: Visit Provider Internal Medicine Hematology & Oncology
DX: C20 Malignant neoplasm of rectum (principal); C78.00 Secondary malignant neoplasm of unspecified lung; Z45.2 Encounter for adjustment and management of vascular access device
CPT/HCPCS: 36591; 80053; 85025

== ENCOUNTER 2022-09-07 09:40 | Observation (INO) | payer OTHER, SELFPAY ==
[2022-09-07] VITALS (21 sets, daily range): BP systolic 116–146; BP diastolic 63–72; PULSE 66–96; RESP 14–20; TEMP 37–37.7; O2SAT 92–96
--- NOTE | 2022-09-07 10:06 | DI.CT_ITS ---
Exam(s) CT ABDOMEN PELVIS WO EXAM: CT ABDOMEN PELVIS WO CLINICAL HISTORY: right flank pain, hx cancer and kid stone. TECHNIQUE: Imaging Protocol: Axial computed tomography images with coronal and sagittal reformatted images were created and reviewed CONTRAST MATERIAL: Intravenous: none Oral: None COMPARISON: CT CT CHEST PE CTA from 05/28/[address] CHEST ABDOMEN PELVIS W CONTRAST (GENERIC) from 08/03/2022 FINDINGS: VISUALIZED LUNG BASES: There are now moderate size bilateral pleural effusions, not previously presen t 1 month ago. Also multiple metastatic appearing nodules are again noted bilaterally in the partial ly visualized lung bases. ABDOMEN: There is no ascites. LIVER: There are no obvious focal hepatic lesions evident of this noninfused study. GALLBLADDER/BILIARY: No obvious gallbladder pathology. CBD is not dilated. PANCREAS: No evidence of pancreatic mass nor dilatation of the pancreatic duct. SPLEEN: Spleen is not enlarged. No obvious intrasplenic lesions. ADRENALS: There are no significant adrenal masses. KIDNEYS:Small calculus in the lower pole calyx of the left kidney again noted. Small cyst in the pos terior cortex of the left kidney again noted. Mild hydronephrosis on the left side. Distal left ure ter is. There is asymmetric density in left side of the urinary bladder. Also circumferential thick ening of the entire urinary bladder wall. Difficult to delineate. In the opposite-right kidney ther e is again noted a benign-appearing cyst in the posterior cortex measuring 3.5 x 3.3 cm. There is a small focus of calcification in the anterior wall of this cyst or medially adjacent kidney parenchyma . No hydronephrosis on the right side... ABDOMINAL AORTA: Abdominal aorta is not enlarged. LYMPH NODES: There is no retroperitoneal nor paraaortic adenopathy. ABDOMINAL WALL: No evidence of significant anterior abdominal wall nor inguinal hernia. GI: Previous subtotal colectomy. No obvious bowel obstruction. No free air. No abscess. PELVIS: LYMPH NODES: There is increasing retro aortic lymphadenopathy when compared to 1 month ago. Calcifie d lymph node anterior left side of the abdomen again noted. GI: No evidence of appendicitis.No evidence of sigmoid diverticulitis. URINARY BLADDER: Abnormal as above. REPRODUCTIVE: Prostate size minimally prominent and shifted towards the left. Also appears to involv e the left side of the urinary bladder. OSSEOUS: No significant osseous lesions. No fractures. Advanced disc space narrowing at L5-S1 level noted. IMPRESSION: 1. Compared to the outside CT scan of August 03, 2022 there are new bilateral moderate size pleural eff usions. There are also multiple bilateral metastatic your nodules in the visualized lung bases. 2. Evidence of previous subtotal colectomy. Low anastomosis but with left-sided density just above t he prostate and appearing to involve the posterior left bladder wall. The left ureter is not promine ntly dilated. Right ureter not dilated. Nonobstructive 2-3 millimeter calculus is again noted in th e lower pole left kidney. There is mild dilatation of the calices of the left kidney; not so on the right side. 3. Increasing [id number] lymphadenopathy when compared to 1 month ago. 4. Circumferential thickening of the bladder wall. Discussed with ER physician RADIATION DOSE DELIVERED: 937.56mGy.cm Total DLP DATA REPOSITORY: All CT scans at this facility are submitted to the National Radiology Data Registry (NRDR) Dose Index Registry (DIR) with the [employer] (ACR). RADIATION OPTIMIZATION: All CT scans at this facility use at least one of these dose optimization te chniques: automated exposure control; mA and/or kV adjustment per patient size (includes targeted exa ms where dose is matched to clinical indication); or iterative reconstruction.
--- NOTE | 2022-09-07 10:23 | ED.GENADUL_ITS ---
Discharge Plan Disposition Patient Disposition: Admit to [facility] Condition: Good Discharge Details Clinical Impression: Psoas muscle strain, Intra-abdominal fluid, Bladder mass, Acute kidney injury, Transaminitis Primary Care Provider: Unknown,Unknown ED Provider: Aubrey Mario Home Meds and New Rx's Prescriptions: No Action bupropion HCl [Wellbutrin SR] 150 mg Tablet Sustained-Release 12 Hr 150 mg PO BID lisinopril 10 mg Tablet 20 mg PO QAM lorazepam [Ativan] 1 mg Tablet 1 mg PO TID magnesium 250 mg Tablet 250 mg PO BID multivitamin Tablet 1 tab PO DAILY Rx Instructions: therapeutic oxycodone [Roxicodone] 5 mg Tablet 5 - 10 mg PO Q4H PRN prochlorperazine maleate [Compazine] 10 mg Tablet 10 mg PO Q6H PRN Patient Comments: not taking rosuvastatin [Crestor] 20 mg Tablet 20 mg PO HS ruxolitinib 10 mg Tablet 10 mg PO BID zolpidem [Ambien] 5 mg Tablet 5 mg PO HS PRN Patient Comments: not taking tamsulosin 0.4 mg Capsule 0.4 mg PO DAILY sertraline 100 mg Tablet 100 mg PO DAILY buprenorphine 20 mcg/hour Patch Weekly 20 mcg transdermal Q7D Medical Decision Making 47-year-old male with an unfortunate rather extensive past medical history of colon cancer and colectomy in 2010 with subsequent ostomy which was then reversed into a pouch. 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 He then had reemergence of his colon cancer in 2019 with subsequent chemotherapy over the last 2 years which they have recently stopped in May. He does have metastases to multiple locations in his body. He is currently in palliative care, and is not currently receiving additional treatment. He did have a recent kidney stone on the left within the past month, that was passed. He now has pain on his right-hand side for the last 4 days. He has been doubling up on his fentanyl patches and taking oxycodone which has not been helping his symptoms. He does admit to some frothiness noted in his urine. He denies any bowel changes. No other complaints at this time. Pain is made worse with movement or trying to eat. It is not being improved by the narcotic medications. Exam demonstrates a slightly thin and pale male, mild right CVA tenderness and mild generalized right-sided abdominal tenderness on deep palpation. Differential is notably broad and includes obstruction, kidney stone, abscess, UTI. We will evaluate for these, control the patient's pain, gently rehydrate, monitor closely and reassess. 2:37 PM Patient's laboratory work-up is returned, no white count, however the patient does demonstrate notable increase in his creatinine to 2.5, GFR of 30, BUN of 51, patient states that he has been drinking regularly though. AST and ALT are elevated compared to normal. Lipase normal. Urinalysis shows RBCs and WBCs. CT scan shows evidence of fluid adjacent to the right psoas muscle which is the location of the patient's pain which is worsened with movement. No evidence of abscess so at this point. Patient's pain is feeling better with a significant amount of narcotics. There is evidence of bladder thickening and a mass on CT scan, as well as notable increase with lymphadenopathy. Out of concern for this fluid collection, and the patient's worsening renal function, transaminitis, and notable pain, I do feel that he would benefit from admission for management of all this. Since he receives majority of his care all at [facility], we did reach out to [facility]. I spoke with Dr. Johnson of surgery, she does not feel that there is a surgical need for him to be transferred, but does agree with the need for admission. She recommends admission to oncology or medicine. [facility] states that there is no beds that are currently available. We did reach out to oncology and [facility] spoke with Dr. Callejas and they have no additional recommendations. They did reach out to the office administrator on-call who states that unless there is a specific acute thing that would need to be done right now at [facility] that the patient does not have any bed availability there. I did reiterate multiple times my concern that the patient will eventually need interventional radiology, and would benefit from having his palliative care team and his oncology staff all there for his management, and it was again reiterated to us that there are no beds available currently. Since he is hemodynamically stable, I do think admission here is reasonable as a less ideal alternative. We will continue to watch him here. I have started Zosyn for antibacterial coverage. I did contact the hospitalist , he agrees with the assessment and plan. Patient will be admitted to [facility]. Discussed this with the patient and his ex- at bedside. I have extensively reviewed the treatment plan with the patient. I have addressed all patient concerns at this time. I have also discussed the plan with the admitting physician and they agree with the current assessment and plan and have agreed to assume responsibility for the patient. All parties demonstrate verbal understanding and agreement with our assessment and plan at this time. The documentation in this chart was dictated using [employer] dictation software. Please excuse any dictation errors. Addendum created 09/07/2022 1:52 p.m.: Also noted is small amount of fluid adjacent to the superolateral aspect of the right the psoas muscle. This fluid measures approximately 2.4 cm wide by 0.7 cm AP. No associated gas. Discussed with ER physician. [ Addendum Report Added by James Hoffman at 09/07/2022 13:54:06 ] Exam(s) CT ABDOMEN PELVIS WO EXAM: CT ABDOMEN PELVIS WO CLINICAL HISTORY: right flank pain, hx cancer and kid stone. TECHNIQUE: Imaging Protocol: Axial computed tomography images with coronal and sagittal reformatted images were created and reviewed CONTRAST MATERIAL: Intravenous: none Oral: None COMPARISON: CT CT CHEST PE CTA from 05/28/[address] CHEST ABDOMEN PELVIS W CONTRAST (GENERIC) from 08/03/2022 FINDINGS: VISUALIZED LUNG BASES: There are now moderate size bilateral pleural effusions, not previously present 1 month ago. Also multiple metastatic appearing nodules are again noted bilaterally in the partially visualized lung bases. ABDOMEN: There is no ascites. LIVER: There are no obvious focal hepatic lesions evident of this noninfused study. GALLBLADDER/BILIARY: No obvious gallbladder pathology. CBD is not dilated. PANCREAS: No evidence of pancreatic mass nor dilatation of the pancreatic duct. SPLEEN: Spleen is not enlarged. No obvious intrasplenic lesions. ADRENALS: There are no significant adrenal masses. KIDNEYS:Small calculus in the lower pole calyx of the left kidney again noted. Small cyst in the posterior cortex of the left kidney again noted. Mild hydronephrosis on the left side. Distal left ureter is. There is asymmetric density in left side of the urinary bladder. Also circumferential thickening of the entire urinary bladder wall. Difficult to delineate. In the opposite-right kidney there is again noted a benign-appearing cyst in the posterior cortex measuring 3.5 x 3.3 cm. There is a small focus of calcification in the anterior wall of this cyst or medially adjacent kidney parenchyma. No hydronephrosis on the right side... ABDOMINAL AORTA: Abdominal aorta is not enlarged. LYMPH NODES: There is no retroperitoneal nor paraaortic adenopathy. ABDOMINAL WALL: No evidence of significant anterior abdominal wall nor inguinal hernia. GI: Previous subtotal colectomy. No obvious bowel obstruction. No free air. No abscess. PELVIS: LYMPH NODES: There is increasing retro aortic lymphadenopathy when compared to 1 month ago. Calcified lymph node anterior left side of the abdomen again noted. GI: No evidence of appendicitis.No evidence of sigmoid diverticulitis. URINARY BLADDER: Abnormal as above. REPRODUCTIVE: Prostate size minimally prominent and shifted towards the left. Also appears to involve the left side of the urinary bladder. OSSEOUS: No significant osseous lesions. No fractures. Advanced disc space narrowing at L5-S1 level noted. IMPRESSION: 1. Compared to the outside CT scan of August 03, 2022 there are new bilateral moderate size pleural effusions. There are also multiple bilateral metastatic your nodules in the visualized lung bases. 2. Evidence of previous subtotal colectomy. Low anastomosis but with left-sided density just above the prostate and appearing to involve the posterior left bladder wall. The left ureter is not prominently dilated. Right ureter not dilated. Nonobstructive 2-3 millimeter calculus is again noted in the lower pole left kidney. There is mild dilatation of the calices of the left kidney; not so on the right side. 3. Increasing uqzzr-vbpc-zfnkth lymphadenopathy when compared to 1 month ago. 4. Circumferential thickening of the bladder wall. HPI General Date/Time Provider Initiated Documentation: 09/07/22 09:48 . HPI Narrative: 47-year-old male with an unfortunate rather extensive past medical history of colon cancer and colectomy in 2010 with subsequent ostomy which was then reversed into a pouch. 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 He has genetic conditioning of familial edematous polyposis. He subsequently also developed yjxsz-xfszog-eelt disease. He then had reemergence of his colon cancer in 2019 with subsequent chemotherapy over the last 2 years which they have recently stopped in May. He does have metastases to multiple locations in his body. He is currently in palliative care, and is not currently receiving additional treatment. He did have a recent kidney stone on the left within the past month, that was passed. He now has pain on his right-hand side for the last 4 days. He has been doubling up on his fentanyl patches and taking oxycodone which has not been helping his symptoms. He does admit to some frothiness noted in his urine. He denies any bowel changes. No other complaints at this time. Pain is made worse with movement or trying to eat. It is not being improved by the narcotic medications. Related Data Home Medications Medication Instructions Recorded Confirmed bupropion HCl 150 mg tablet,12 hr 150 mg PO BID 05/28/20 09/07/22 sustained-release (Wellbutrin SR) lisinopril 10 mg tablet 20 mg PO QAM 05/28/20 09/07/22 lorazepam 1 mg tablet (Ativan) 1 mg PO TID 05/28/20 09/07/22 magnesium 250 mg tablet 250 mg PO BID 05/28/20 09/07/22 multivitamin 1 tab PO DAILY 05/28/20 09/07/22 oxycodone 5 mg tablet (Roxicodone) 5 - 10 mg PO Q4H PRN 05/28/20 09/07/22 prochlorperazine maleate 10 mg 10 mg PO Q6H PRN 05/28/20 05/28/20 tablet (Compazine) rosuvastatin 20 mg tablet (Crestor) 20 mg PO HS 05/28/20 09/07/22 ruxolitinib 10 mg tablet 10 mg PO BID 05/28/20 09/07/22 zolpidem 5 mg tablet (Ambien) 5 mg PO HS PRN 05/28/20 05/28/20 buprenorphine 20 mcg/hour weekly 20 mcg transdermal Q7D 09/07/22 09/07/22 transdermal patch sertraline 100 mg tablet 100 mg PO DAILY 09/07/22 09/07/22 tamsulosin 0.4 mg capsule 0.4 mg PO DAILY 09/07/22 09/07/22 Allergies Allergy/AdvReac Type Severity Reaction Status Date / Time morphine AdvReac Intermediate Nausea Unverified 09/07/22 09:57 General Stated Complaint: FlankPain JAIMIE: 3 Review of Systems All systems reviewed & are unremarkable except as noted in HPI and below PFSH All Active Problems (Updated 09/07/22 @ 14:36 by Aubrey Mario DO) Psoas muscle strain (Acute) Intra-abdominal fluid (Acute) Bladder mass (Acute) Acute kidney injury (Acute) Transaminitis (Acute) Colon cancer (Chronic) Surgical History Bone marrow replaced by transplant Social History Smoking/Tobacco Use Status: Never Smoking risk assessment performed?: Yes Alcohol Intake: current Alcohol Intake frequency: holidays/special occasions only Substance use type: marijuana Details: medical marijuana Do you feel safe at home: Yes Do you feel safe in your relationship?: Yes Exam Narrative Exam Narrative: 1.Const: Somewhat thin and slightly cachectic appearing. 2.Eyes: PERRL, no conjunctival injection, and symmetrical lids. 3.ENT: Atraumatic external nose and ears. Moist MM. Neck: Symmetric, trachea midline, No thyromegaly. 4.CVS: +S1/S2, No murmurs or gallops. Peripheral pulses 2+ and equal in all extremities. Brisk capillary refill in all extremities. 5.RESP: Unlabored respiratory effort. Clear to auscultation bilaterally. No wheezes rales or rhonchi 6.GI: Soft, nondistended, mild pain on palpation deeply on the right, mild right CVA tenderness 7.MSK: Normocephalic/Atraumatic, Extremities w/o deformity or ttp No cyanosis or clubbing, Normal movement of all extremities 8.Skin: Warm, Dry. No rashes or lesions. 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 Sensation grossly intact, no focal neurologic deficits. 10.Psych: (AAO) x3. Appropriate mood and affect Course Vital Signs Vital signs: Vital Signs Temperature 37.3 C 09/07/22 09:50 Pulse 96 H 09/07/22 09:50 Respiratory Rate 20 09/07/22 09:50 Blood Pressure 116/69 09/07/22 09:50 Pulse Oximetry 96 09/07/22 09:50 Temperature 37.3 C 09/07/22 09:50 Temperature Source Oral 09/07/22 09:50 Pulse 96 H 09/07/22 09:50 Respiratory Rate 20 09/07/22 09:50 Respiratory Effort Normal 09/07/22 09:56 Blood Pressure 116/69 09/07/22 09:50 Blood Pressure Position Sitting 09/07/22 09:50 Pulse Oximetry 96 09/07/22 09:50 Oxygen Delivery Method Room Air 09/07/22 09:50 Oxygen Flow Rate 0 09/07/22 09:50 Pain Level 8 09/07/22 09:50
[2022-09-07 10:27] LABS: Lactate 0.7 mmol/L (0.6-1.4)
[2022-09-07 10:32] LABS: Abs Immature Grans 0.03 10^3/uL (0.0-0.06); Absolute Basophil Count 0.01 10^3/uL (0.0-0.2); Absolute Eosinophil Count 0.09 10^3/uL (0.0-0.7); Absolute Lymphocyte Count 0.95 10^3/uL (1.2-3.4); Absolute Monocyte Count 0.69 10^3/uL (0.1-0.8); Absolute Neutrophil Count 6.06 10^3/uL (1.2-6.7); Basophils % 0.1; Eosinophils % 1.1; HCT 27.2 % (40.0-50.0); HGB 8.7 g/dL (13.5-17.5); Immature Grans % 0.4; Lymphocytes % 12.1; MCH 26.9 pg (27.0-33.0); MCV 84 fL (80-95); MPV 9.7 fL (8.0-11.0); Monocytes % 8.8; Neutrophils % 77.5; Platelet Count 258 10^3/uL (130-400); RBC 3.23 10^6/uL (4.36-5.78); RDW 16.9 % (11.8-14.1); RDW-SD 52.4 fL; WBC 7.83 10^3/uL (4.4-10.8)
[2022-09-07] MEDS: Normal Saline 1,000 ML 1000 ML IV (10:32)
[2022-09-07] MEDS: Ondansetron 4 MG/2 ML VIAL IVP ×2 (10:32→18:50)
[2022-09-07] MEDS: HYDROmorphone 2 MG/ML SYR IVP (10:33)
[2022-09-07 10:44] LABS: ALT 150 U/L (16-63); AST 167 U/L (15-37); Albumin 2.5 g/dL (3.4-5.0); Alkaline Phosphatase 171 U/L (46-116); Anion Gap 9.4 mmol/L (3-11); BUN 51 mg/dL (7-18); Bilirubin, Total 0.5 mg/dL (0.2-1.0); CO2 21.6 mmol/L (21.0-32.0); CREATININE 2.5 mg/dL (0.70-1.30); Calcium 8.9 mg/dL (8.5-10.1); Chloride 105 mmol/L (98-107); Estimated GFR 30.73 (mL/min/1.73m2); Glucose 114 mg/dL (74-106); Lipase 17 U/L (16-77); Potassium 4.3 mmol/L (3.5-5.1); Sodium 136 mmol/L (136-145); Total Protein 6.9 g/dL (6.4-8.2)
[2022-09-07 11:20] LABS: Diff Comment RBC Morph Reviewed
[2022-09-07 11:21] LABS: Anisocytosis 1+; Poikilocytes 1+
[2022-09-07 12:10] LABS: Bilirubin Negative (Negative); Blood Moderate (Negative); Clarity Clear (Clear); Glucose Negative (Negative); Ketones Negative (Negative); Leukocyte Esterase Small (Negative); Nitrite Negative (Negative); Urobilinogen 0.2 mg/dL (Up to 0.2); pH 5.5 (5-8)
[2022-09-07 12:22] LABS: Bacteria Few HPF (Negative); C & S Indicated? Yes; Casts 3-5 Hyaline LPF (Negative); Crystals Negative HPF (Negative); Epithelial Cells Rare HPF (Negative); Mucus Negative (Negative); RBC 20-50 HPF (0-2)
[2022-09-07] MEDS: HYDROmorphone 2 MG/ML SYR 1 MG IVP ×3 (13:36→19:47)
[2022-09-07] MEDS: PIPERACILLIN/TAZO 4.5 GM in Normal Saline 100 ML IVPB ×2 (14:03→19:48)
--- NOTE | 2022-09-07 15:38 | INITIAL_ITS ---
- If Service Date Differs Date of service: 09/07/22 Time of Service: 15:38 Care Management Initial Assess REASON FOR HOSPITALIZATION:: UTI, Psoas Muscle Fluid Collection. PAST MEDICAL HISTORY/PAST SURGICAL HISTORY:: All Active Problems: Psoas muscle strain (Acute), Intra-abdominal fluid (Acute), Bladder mass (Acute), Acute kidney injury (Acute), Transaminitis (Acute), and Colon cancer (Chronic). Surgical History: Bone marrow replaced by transplant. PREVIOUS FUNCTIONAL STATUS/SOCIAL/FAMILY SUPPORTS:: Horacio lives in [facility] with his adult daughter Vivi, his ex- Nancy and her fiance. He states this is an unusual living situation but he currently needs a lot of support and is grateful they are there to help care for him. Horacio has a genetic condition of familial edematous polyposis. He was first diagnosed with colon cancer in 2010. He subsequently developed leukemia secondary to the treatment of the colon cancer, which reemerged in 2020. Horacio is mostly independent with his ADLs. CURRENT FUNCTIONAL STATUS:: Horacio is lying in bed when CM comes to meet with him. His ex- Nancy is present in the room. Horacio requests that Nancy be present for any bad news from the doctor, as he becomes overwhelmed and is unable to process the information. Nancy states that Horacio has had seizures in the past due to being overly stressed. ADVANCE DIRECTIVES:: None on file but patient reports he has a living will and a POA at home. Nancy Obrien is appointed as Health Care Agent, per patient. Has patient been provided with info about the portal/API?: Yes Did the patient sign up for the portal?: Yes (Previously enrolled) CODE STATUS:: Full Code INSURANCE COVERAGE / FINANCIAL ISSUES:: [employer] and Medicare Part A. CURRENT HOME/COMMUNITY SERVICES/EQUIPMENT:: Patient denies having any home/community services or medical equipment. PRIMARY CARE PHYSICIAN:: Luann Harper MD ([facility]). POTENTIAL DISCHARGE NEEDS:: Follow up with PCP and Palliative Care. PATIENT/FAMILY EDUCATION NEEDS:: Review of discharge instructions and discuss Ask Me Three. ANTICIPATED BARRIERS TO DISCHARGE:: None identified at this time. TRANSPORTATION:: Via private vehicle with family. PLAN:: Horacio will be discharged home with no new services when medically cleared by provider. He will follow up with his PCP, [facility] oncologist, Palliative Care, and plan of care as instructed. He will be transported home by Nancy via private vehicle when ready. CM will continue to support patient, his family and any discharge planning needs.
[2022-09-07 16:29] LABS: Source Nasal/Nares
--- NOTE | 2022-09-07 16:30 | NUR.NOTE ---
Nursing Note:Pt transported to rm 231 via stretcher w/ RN at this time.
[2022-09-07 17:09] LABS: COVID-19 PCR Negative (Negative)
[2022-09-07] MEDS: oxyCODONE 5 MG TAB PO (17:29)
--- NOTE | 2022-09-07 18:01 | W.PM.HP.N ---
Date of service: 09/07/22 Time of Service: 18:02 Assessment and Plan Assessment and plan (1) Acute kidney injury: Status: Acute Assessment and plan: Pt denies lack of fluid intake. Creatinine now 2.5; baseline of 1.5 IV NS bolus in ED. Will give another 1L of IV fluid at 150ml/hr. Monitor. No obstructive uropathy. (2) Bladder mass: Status: Acute Assessment and plan: Know. Partially resected in the past. (3) Intra-abdominal fluid: Status: Acute Assessment and plan: ED physician mentioned a right psoas muscle fluid collection. No WBC elevation or fever. No mention of this on CT report. Monitor for worsening. Pain management. (4) Transaminitis: Status: Acute Assessment and plan: No obious focal hepatic lesions on noninfused study. Likely CA related process. (5) Colon cancer: Status: Chronic Assessment and plan: [place] [facility] oral palliative medication ruxolitinib. Review of Systems All systems reviewed & are unremarkable except as noted in HPI and below PFSH All Active Problems (Updated 09/07/22 @ 14:36 by Aubrey Mario DO) Psoas muscle strain (Acute) Intra-abdominal fluid (Acute) Bladder mass (Acute) Acute kidney injury (Acute) Transaminitis (Acute) Colon cancer (Chronic) Surgical History Bone marrow replaced by transplant Social History Smoking/Tobacco Use Status: Never Smoking risk assessment performed?: Yes Alcohol Intake: current Alcohol Intake frequency: holidays/special occasions only Substance use type: marijuana Details: medical marijuana Do you feel safe at home: Yes Do you feel safe in your relationship?: Yes Meds Allergies and Home Medications Allergies Allergy/AdvReac Type Severity Reaction Status Date / Time morphine AdvReac Intermediate Nausea Unverified 09/07/22 09:57 Home Medications Medication Instructions Recorded Confirmed Type bupropion HCl 150 mg tablet,12 hr 150 mg PO BID 05/28/20 09/07/22 History sustained-release (Wellbutrin SR) lisinopril 10 mg tablet 20 mg PO QAM 05/28/20 09/07/22 History lorazepam 1 mg tablet (Ativan) 1 mg PO TID 12/31/20 04/12/23 History magnesium 250 mg tablet 250 mg PO BID 05/28/20 09/07/22 History multivitamin 1 tab PO DAILY 05/28/20 09/07/22 History oxycodone 5 mg tablet (Roxicodone) 5 - 10 mg PO Q4H PRN 05/28/20 09/07/22 History prochlorperazine maleate 10 mg 10 mg PO Q6H PRN 05/28/20 05/28/20 History tablet (Compazine) rosuvastatin 20 mg tablet (Crestor) 20 mg PO HS 05/28/20 09/07/22 History ruxolitinib 10 mg tablet 10 mg PO BID 05/28/20 09/07/22 History zolpidem 5 mg tablet (Ambien) 5 mg PO HS PRN 05/28/20 05/28/20 History buprenorphine 20 mcg/hour weekly 20 mcg transdermal Q7D 09/07/22 09/07/22 History transdermal patch sertraline 100 mg tablet 150 mg PO DAILY 09/07/22 09/08/22 History tamsulosin 0.4 mg capsule 0.4 mg PO DAILY 09/07/22 09/07/22 History fentanyl 12 mcg/hr transdermal 1 patch transdermal Q72H 09/08/22 09/08/22 History patch fluoride (sodium) 1.1 % dental 1 applic dental DAILY 09/08/22 09/08/22 History paste (PreviDent 5000 Booster Plus) ibuprofen 800 mg tablet 800 mg PO Q8H PRN 09/08/22 09/08/22 History lidocaine HCl 2 % mucosal jelly in 1 applic topical BID-QID PRN 09/08/22 09/08/22 History applicator ondansetron 8 mg disintegrating 8 mg PO Q8H PRN 09/08/22 09/08/22 History tablet triamcinolone acetonide 0.1 % 1 applic dental TID 09/08/22 09/08/22 History dental paste Exam Narrative Exam Narrative: GEn: Pale, fatigued appearing. Pleasant and conversant. Eyes: Sclera clear. Symmetrical lids. CVS: +S1/S2, No murmurs or gallops. Peripheral pulses 2+ and equal in all extremities. Lungs: Unlabored respiratory effort. Clear to auscultation bilaterally. No wheezes rales or rhonchi GI: Soft, nondistended, mild pain on palpation deeply on the right, mild right CVA tenderness. No guarding. MSK: No joint enlargement/erythema. Calfs nontender. No edema. Skin: Warm, Dry. No rashes or lesions. 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 Psych: (AAO) x3. Appropriate mood and affect Results Labs 09/07/22 10:20 09/07/22 10:20 Labs: Laboratory Results - last 24 hr 09/07/22 09/07/22 09/07/22 10:20 10:20 10:20 WBC 7.83 RBC 3.23 L Hgb 8.7 L Hct 27.2 L MCV 84 MCH 26.9 L MCHC 32.0 RDW 16.9 H Plt Count 258 MPV 9.7 Immature Gran % 0.4 Neutrophils % 77.5 Lymphocytes % 12.1 Monocytes % 8.8 Eosinophils % 1.1 Basophils % 0.1 Nucleated RBC % 0.0 Absolute Neutrophils 6.06 Absolute Lymphocytes 0.95 L Absolute Monocytes 0.69 Absolute Eosinophils 0.09 Absolute Basophils 0.01 Poikilocytosis 1+ Anisocytosis 1+ VBG Lactate 0.7 Sodium 136 Potassium 4.3 Chloride 105 Carbon Dioxide 21.6 Anion Gap 9.4 BUN 51 H Creatinine 2.5 H Est GFR (CKD-EPI 2020) 30.73 Glucose 114 H Calcium 8.9 Total Bilirubin 0.5 AST 167 H ALT 150 H Alkaline Phosphatase 171 H Total Protein 6.9 Albumin 2.5 L Lipase 17 Urine Color Urine Clarity Urine pH Ur Specific [place] Urine Protein Urine Ketones Urine Blood Urine Nitrite Urine Bilirubin Urine Urobilinogen Ur Leukocyte Esterase Urine RBC Urine WBC Ur Epithelial Cells Urine Crystals Urine Bacteria Urine Casts Urine Mucus Ur Culture Indicated? Urine Glucose COVID-19 Source SARS-CoV-2 (PCR) 09/07/22 09/07/22 12:05 16:20 WBC RBC Hgb Hct MCV MCH MCHC RDW Plt Count MPV Immature Gran % Neutrophils % Lymphocytes % Monocytes % Eosinophils % Basophils % Nucleated RBC % Absolute Neutrophils Absolute Lymphocytes Absolute Monocytes Absolute Eosinophils Absolute Basophils Poikilocytosis Anisocytosis VBG Lactate Sodium Potassium Chloride Carbon Dioxide Anion Gap BUN Creatinine Est GFR (CKD-EPI 2020) Glucose Calcium Total Bilirubin AST ALT Alkaline Phosphatase Total Protein Albumin Lipase Urine Color Yellow Urine Clarity Clear Urine pH 5.5 Ur Specific [place] 1.020 Urine Protein 100 H Urine Ketones Negative Urine Blood Moderate H Urine Nitrite Negative Urine Bilirubin Negative Urine Urobilinogen 0.2 Ur Leukocyte Esterase Small H Urine RBC 20-50 H Urine WBC 10-20 H Ur Epithelial Cells Rare Urine Crystals Negative Urine Bacteria Few Urine Casts 3-5 Hyaline Urine Mucus Negative Ur Culture Indicated? Yes Urine Glucose Negative COVID-19 Source Nasal/Nares SARS-CoV-2 (PCR) Negative Last Vital Signs Temp 37 C 09/07/22 16:25 Pulse 91 H 09/07/22 16:25 Resp 16 09/07/22 16:25 BP 146/71 H 09/07/22 16:25 Pulse Ox 93 09/07/22 16:25 Time Spent Time spent with Patient: 40-54 minutes Time was spent: preparing to see the patient(eg.review tests), obtaining and/or reviewing separately otained hiistory, ordering medications,tests, procedures, referring, communicating with other health child care provider, indepentently interpreting results and counseling the patient
[2022-09-07] MEDS: Normal Saline 1,000 ML 150 ML IV (18:38)
[2022-09-07] MEDS: fentaNYL 25 MCG PATCH TD (18:40)
[2022-09-07] MEDS: Magnesium Gluconate 500 MG TAB 250 MG PO (19:47)
[2022-09-07] MEDS: buPROPion-CR 150 MG TABCR PO (19:48)
[2022-09-07] MEDS: LORazepam 1 MG TAB PO (20:03)
[2022-09-07] MEDS: Naproxen 500 MG TAB PO (21:35)
[2022-09-07] MEDS: diphenhydrAMINE 25 MG CAP PO (21:35)
[2022-09-07] MEDS: Heparin 5,000 UNITS/ML VIAL 5000 UNITS SC (21:35)
[2022-09-07] MEDS: Rosuvastatin 10 MG TAB 20 MG PO (21:35)
[2022-09-08] VITALS (7 sets, daily range): BP systolic 114–131; BP diastolic 64–78; PULSE 77–95; RESP 16–18; TEMP 36.2–36.9; O2SAT 94–98
[2022-09-08] MEDS: PIPERACILLIN/TAZO 4.5 GM in Normal Saline 100 ML IVPB ×3 (01:30→14:04)
[2022-09-08] MEDS: Tamsulosin 0.4 MG CAPCR PO (08:08)
[2022-09-08] MEDS: Multivitamin TAB 1 TAB PO (08:08)
[2022-09-08] MEDS: Sertraline 100 MG TAB PO (08:08)
[2022-09-08] MEDS: buPROPion-CR 150 MG TABCR PO (08:08)
[2022-09-08] MEDS: Magnesium Gluconate 500 MG TAB 250 MG PO (08:08)
[2022-09-08] MEDS: LORazepam 1 MG TAB PO ×2 (08:08→13:33)
[2022-09-08 08:24] LABS: ALT 141 U/L (16-63); AST 116 U/L (15-37); Albumin 2.1 g/dL (3.4-5.0); Alkaline Phosphatase 269 U/L (46-116); Anion Gap 7.8 mmol/L (3-11); BUN 38 mg/dL (7-18); Bilirubin, Total 0.5 mg/dL (0.2-1.0); CO2 23.2 mmol/L (21.0-32.0); CREATININE 1.9 mg/dL (0.70-1.30); Calcium 8.5 mg/dL (8.5-10.1); Chloride 108 mmol/L (98-107); Estimated GFR 42.71 (mL/min/1.73m2); Glucose 93 mg/dL (74-106); Magnesium 2.4 mg/dL (1.8-2.4); Potassium 4.9 mmol/L (3.5-5.1); Sodium 139 mmol/L (136-145)
[2022-09-08 10:45] LABS: Hepatitis A Antibody IgM Negative (Negative); Hepatitis B Core Antibody Negative (Negative); Hepatitis B surface Ag Negative (Negative); Hepatitis C Ab w Rflx HCV PCR Negative (Negative)
[2022-09-08 11:08] LABS: HCT 22.4 % (40.0-50.0); HGB 7.1 g/dL (13.5-17.5); MCH 27.2 pg (27.0-33.0); MCHC 31.7 % (32.0-36.0); MCV 86 fL (80-95); MPV 8.7 fL (8.0-11.0); Platelet Count 255 10^3/uL (130-400); RBC 2.61 10^6/uL (4.36-5.78); RDW 17.2 % (11.8-14.1); WBC 7.51 10^3/uL (4.4-10.8)
[2022-09-08] MEDS: oxyCODONE 5 MG TAB PO (13:32)
--- NOTE | 2022-09-08 16:36 | W.PM.DS.N ---
Date of service: 09/08/22 Time of Service: 16:36 DS: Diagnosis Discharge Diagnosis (1) Acute kidney injury: Status: Acute Asessment and Plan: Improved with hydration. Oral intake improved with improvement in pain control. (2) Bladder mass: Status: Acute Asessment and Plan: Known metastatic process. Previously had a partial resection. Oncology will follow. (3) Intra-abdominal fluid: Status: Acute Asessment and Plan: Likely psoas muscle strain. He has had no single event that would relate to an injury but has been more active recently with travel. No WBC elevation or fever. Pain improved. Will continue a course of Augmentin 875mg BID. (4) Transaminitis: Status: Acute Asessment and Plan: Related to cancer dx. (5) Colon cancer: Status: Chronic Asessment and Plan: Cont palliative tx and care. Oncology f/u. 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 + metastases.? Palliative care patient that receives care at [facility].? He presented with 4 day h/o right sided low back/flank/groin pain.? He did pass a kidney stone on the left within the last month.? His palliative physician increased his fentanyl patch from 12mcg Q7 to two 12mcg patches and increased his prn oxycodone to 10-20 Q3H prn. ED evaluation:? Afebrile.? Normal WBC count. Hgb 8.7.Creatinine 2.5; elevated above baseline.? BUN 51. AST and ALT elevated.? LIpase normal. UA w/o evidence of infection. CT abd/pelvis? 1. Compared to the outside CT scan of August 03, 2022 there are new bilateral moderate size pleural effusions.? There are also multiple bilateral metastatic your nodules in the visualized lung bases. 2. Evidence of previous subtotal colectomy.? Low anastomosis but with left-sided density just above the prostate and appearing to involve the posterior left bladder wall.? The left ureter is not prominently dilated.? Right ureter not dilated.? Nonobstructive 2-3 millimeter calculus is again noted in the lower pole left kidney.? There is mild dilatation of the calices of the left kidney; not so on the right side. 3. Increasing [id number] lymphadenopathy when compared to 1 month ago. 4.? Circumferential thickening of the bladder wall. Also noted was a fluid collection at the right proximal lateral psoas muscle; not consistent with an abscess. ED physician spoke with [facility] surgery and oncology.? Oncology recommended admission to medicine team but no bed available.? Zosyn initiated in the event the psoas fluid collection was a developing abscess.? See Diagnosis Pt to schedule follow up with palliative care physician. Home Meds and New Rx's Prescriptions: New oxycodone 5 mg Tablet 10 - 20 mg PO Q3H PRN PRNQty: 0 0RF diphenhydramine HCl 25 mg Capsule 25 mg PO HS Qty: 0 0RF fentanyl 25 mcg/hr Patch 72 Hour 25 mcg transdermal Q72H Qty: 2 0RF naproxen 500 mg Tablet 500 mg PO HS Qty: 0 0RF amoxicillin-pot clavulanate 875-125 mg tablet 1 tab PO BID Qty: 10 0RF Continued bupropion HCl [Wellbutrin SR] 150 mg Tablet Sustained-Release 12 Hr 150 mg PO BID lisinopril 10 mg Tablet 20 mg PO QAM lorazepam [Ativan] 1 mg Tablet 1 mg PO TID multivitamin Tablet 1 tab PO DAILY Rx Instructions: therapeutic prochlorperazine maleate [Compazine] 10 mg Tablet 10 mg PO Q6H PRN Patient Comments: not taking rosuvastatin [Crestor] 20 mg Tablet 20 mg PO HS ruxolitinib 10 mg Tablet 10 mg PO BID tamsulosin 0.4 mg Capsule 0.4 mg PO DAILY sertraline 100 mg Tablet 150 mg PO DAILY ondansetron 8 mg Tablet,Disintegrating 8 mg PO Q8H PRN triamcinolone acetonide 0.1 % Paste 1 applic DENTAL TID Rx Instructions: use after food and/or drink and/or oral hygiene fluoride (sodium) [PreviDent 5000 Booster Plus] 1.1 % Paste 1 applic DENTAL DAILY lidocaine HCl 2 % Jelly In Applicator 1 applic TOPICAL BID-QID PRN Discontinued oxycodone [Roxicodone] 5 mg Tablet 5 - 10 mg PO Q4H PRN zolpidem [Ambien] 5 mg Tablet 5 mg PO HS PRN Patient Comments: not taking buprenorphine 20 mcg/hour Patch Weekly 20 mcg transdermal Q7D ibuprofen 800 mg Tablet 800 mg PO Q8H PRN fentanyl 12 mcg/hr Patch 72 Hour 1 patch TRANSDERMAL Q72H No Action magnesium 250 mg Tablet 250 mg PO BID Discharge Instructions Instructions: Acute Kidney Injury (GEN) Additional Instructions: If you develope a fever or if the right sided pain worsens, present to the ED for re-evaluation Stand Alone Forms: Nursing Discharge Form Referrals: Unknown,Unknown [STAFF PHYSICIAN] - (Please call your PCP and make an Appointment in the next 1-2 weeks ) Activity:: Activity as Tolerated Equipment/Supplies:: No Equipment Needed Diet:: As Tolerated Discharge Orders Discharge Orders: Discharge Order (Routine); Ordered 09/08/22 Ordered By: Man Smith Discharge Data Discharge Date/Time-TO BE ENTERED AT DEPARTURE: 09/08/22 19:03 DS: Summary Time Spent with Patient providing and/or coordinating discharge services: Greater than 30 minutes Status at Discharge Functional status at discharge: independent ambulation Overall status at discharge: patient is progressing back to baseline Mental Status: mental status grossly normal Speech and Movement: speech clear Mood: congruent mood Affect: normal affect Exam Narrative Exam Narrative: GEn: Pale, fatigued appearing. Pleasant and conversant. Describes less right lower back/flank/groin pain. Eyes: Sclera clear. Symmetrical lids. CVS: +S1/S2, No murmurs or gallops. Peripheral pulses 2+ and equal in all extremities. Lungs: Unlabored respiratory effort. Clear to auscultation bilaterally. No wheezes rales or rhonchi GI: Soft, nondistended, mild pain on palpation deeply on the right, mild right CVA tenderness. No guarding. MSK: No joint enlargement/erythema. Calfs nontender. No edema. Skin: Warm, Dry. No rashes or lesions. Neuro: director of physical therapy II-XII grossly intact, no focal neurologic deficits. Psych: (AAO) x3. Appropriate mood and affect Psych Mental Status: mental status grossly normal Speech and Movement: speech clear Mood: congruent mood Affect: normal affect DS: Data Vitals/I&O Vitals and I&O: Vital Signs Temperature 36.2 C L 09/08/22 16:05 Temperature Source Tympanic 09/08/22 08:59 Pulse 85 09/08/22 16:05 Pulse Rhythm Regular 09/08/22 10:07 Respiratory Rate 16 09/08/22 16:05 Respiratory Effort Normal, Non-Labored 09/08/22 10:07 Respiratory Depth Normal 09/08/22 10:07 Respiratory Pattern Normal 09/08/22 10:07 Blood Pressure 131/72 09/08/22 16:05 Blood Pressure Mean 77 09/07/22 16:01 Blood Pressure Position Sitting 09/07/22 09:50 Pulse Oximetry 97 09/08/22 16:05 Oxygen Delivery Method Room Air 09/08/22 16:05 Oxygen Flow Rate 0 09/08/22 16:05 Pain Level 10 09/08/22 13:32 Intake & Output 09/07/22 09/08/22 09/08/22 23:59 11:59 23:59 Intake Total 1550 / 1550 2310 / 3060 750 / 3060 Output Total 300 / 300 400 / 1000 600 / 1000 Balance 1250 / 1250 1910 / 2060 150 / 2060 Intake: IV 1200 / 1200 1200 / 1300 100 / 1300 Oral 350 / 350 1110 / 1760 650 / 1760 Output: Urine 300 / 300 400 / 1000 600 / 1000 Other: Urine Color Pale Pale Pale Yellow Urine Appearance Clear Clear Clear Urine Odor None None Comment Unmeasured, mixed with stool Stool Size Large Moderate Stool Characteristics Soft Soft Formed Liquid Brown Data Completed and Pending Labs on day of discharge: Labs from last 24 hours 09/08/22 09/08/22 09/08/22 13:07 06:07 06:07 WBC 7.51 RBC 2.61 L Hgb 7.1 L Hct 22.4 L MCV 86 MCH 27.2 MCHC 31.7 L RDW 17.2 H Plt Count 255 MPV 8.7 Sodium 139 Potassium 4.9 Chloride 108 H Carbon Dioxide 23.2 Anion Gap 7.8 BUN 38 H Creatinine 1.9 H Est GFR (CKD-EPI 2020) 42.71 Glucose 93 Calcium 8.5 Magnesium 2.4 Total Bilirubin 0.5 AST 116 H ALT 141 H Alkaline Phosphatase 269 H Total Protein 6.0 L Albumin 2.1 L SARS-CoV-2 (PCR) Hepatitis A IgM Ab Hep Bs Antigen Hep B Core Total Ab Hepatitis C Antibody Patient ABO/Rh A Positive Antibody Screen NEGATIVE Crossmatch See Detail 09/07/22 09/07/22 16:20 10:20 WBC RBC Hgb Hct MCV MCH MCHC RDW Plt Count MPV Sodium Potassium Chloride Carbon Dioxide Anion Gap BUN Creatinine Est GFR (CKD-EPI 2020) Glucose Calcium Magnesium Total Bilirubin AST ALT Alkaline Phosphatase Total Protein Albumin SARS-CoV-2 (PCR) Negative Hepatitis A IgM Ab Negative Hep Bs Antigen Negative Hep B Core Total Ab Negative Hepatitis C Antibody Negative Patient ABO/Rh Antibody Screen Crossmatch Preliminary micro results at discharge 09/07/22 13:50 Blood Culture - Preliminary Blood NO GROWTH 24 HOURS 09/07/22 12:05 Urine Culture - Preliminary Urine - Reflex from Ua Group B Streptococcus 09/07/22 14:00 Blood Culture - Preliminary Blood Gram Positive Cocci PFSH All Active Problems Psoas muscle strain (Acute) Intra-abdominal fluid (Acute) Bladder mass (Acute) Acute kidney injury (Acute) Transaminitis (Acute) Colon cancer (Chronic) Surgical History Bone marrow replaced by transplant Social History Smoking/Tobacco Use Status: Never Smoking risk assessment performed?: Yes Alcohol Intake: current Alcohol Intake frequency: holidays/special occasions only Substance use type: marijuana Details: medical marijuana Do you feel safe at home: Yes Do you feel safe in your relationship?: Yes Time Spent with Patient Time Spent with Patient: 45-69 minutes Time was spent: preparing to see the patient(eg.review tests), obtaining and/or reviewing separately otained hiistory, referring, communicating with other health property caretaker, indepentently interpreting results, counseling the patient and care coordination
[2022-09-08] MEDS: Acetaminophen 325 MG TAB PO (18:19)
== END 2022-09-08 19:03 | disposition home or self-care (01) | DRG 683 ==
LOC: ER 14:42 → MS 09-08 09:52
PROVIDERS: Admitting Provider Family Medicine; Emergency Provider Student in an Organized Health Care Education/Training Program; Visit Provider Family Medicine
DX: N17.9 Acute kidney failure, unspecified (principal); C18.9 Malignant neoplasm of colon, unspecified; R18.8 Other ascites; Z94.81 Bone marrow transplant status; C78.02 Secondary malignant neoplasm of left lung; C78.01 Secondary malignant neoplasm of right lung; C79.11 Secondary malignant neoplasm of bladder; S39.013A Strain of muscle, fascia and tendon of pelvis, initial encounter; N32.89 Other specified disorders of bladder; R74.01 Elevation of levels of liver transaminase levels; X58.XXXA Exposure to other specified factors, initial encounter; Z85.6 Personal history of leukemia; N20.0 Calculus of kidney; Z90.49 Acquired absence of other specified parts of digestive tract; Z98.0 Intestinal bypass and anastomosis status
CPT/HCPCS: 36410; 36415; 80053; 83690; 85027; 86704; 86709; 86803; 86850; 86900; 86901; 86920; 86945; 87040; 87077; 87340; 87635; 96361; 96365; 96366; 96372; 96375; 96376; 99285; 74176; 81003; 81015; 83605; 83735; 85025; 87086; 99222; 99239; G0378; J1170; J1644; J2405; J2543; J3490; P9016

== ENCOUNTER 2022-12-26 09:30 | Outpatient (RCR) | payer OTHER, SELFPAY ==
[2022-12-23] MEDS: Normal Saline Flush 10 ML SYR IVP (13:00)
[2022-12-23 13:27] LABS: Abs Immature Grans 0.05 10^3/uL (0.0-0.06); Absolute Basophil Count 0.05 10^3/uL (0.0-0.2); Absolute Eosinophil Count 0.11 10^3/uL (0.0-0.7); Absolute Lymphocyte Count 2.15 10^3/uL (1.2-3.4); Absolute Monocyte Count 0.53 10^3/uL (0.1-0.8); Absolute Neutrophil Count 4.32 10^3/uL (1.2-6.7); Basophils % 0.7; Eosinophils % 1.5; HCT 28.7 % (40.0-50.0); Immature Grans % 0.7; Lymphocytes % 29.8; MCH 26.9 pg (27.0-33.0); MCHC 31.4 % (32.0-36.0); MCV 86 fL (80-95); MPV 8.2 fL (8.0-11.0); Monocytes % 7.4; Neutrophils % 59.9; Platelet Count 319 10^3/uL (130-400); RBC 3.35 10^6/uL (4.36-5.78); RDW 17.2 % (11.8-14.1); RDW-SD 53.9 fL; WBC 7.21 10^3/uL (4.4-10.8)
[2022-12-23 13:58] LABS: ALT 20 U/L (16-63); AST 19 U/L (15-37); Alkaline Phosphatase 53 U/L (46-116); Anion Gap 10.3 mmol/L (3-11); BUN 26 mg/dL (7-18); Bilirubin, Total 0.3 mg/dL (0.2-1.0); CO2 23.7 mmol/L (21.0-32.0); CREATININE 1.8 mg/dL (0.70-1.30); Chloride 108 mmol/L (98-107); Estimated GFR 45.57 (mL/min/1.73m2); Glucose 129 mg/dL (74-106); Potassium 4.7 mmol/L (3.5-5.1); Sodium 142 mmol/L (136-145); Total Protein 6.6 g/dL (6.4-8.2)
[2022-12-23 22:18] LABS: CEA 47.7 ng/mL (See Note)
== END 2022-12-26 23:59 | disposition home or self-care (01) ==
LOC: INF 09:30
PROVIDERS: Visit Provider Internal Medicine Hematology & Oncology
DX: Z45.2 Encounter for adjustment and management of vascular access device (principal); C20 Malignant neoplasm of rectum; C78.00 Secondary malignant neoplasm of unspecified lung
CPT/HCPCS: 36591; 80053; 82378; 85025

== ENCOUNTER 2023-01-10 18:32 | Outpatient (REF) | payer MEDICARE, OTHER, SELFPAY ==
[2023-01-10 20:54] LABS: Bilirubin Negative (Negative); Blood Moderate (Negative); Clarity Sl Cloudy (Clear); Glucose Negative (Negative); Ketones Negative (Negative); Leukocyte Esterase Trace (Negative); Nitrite Negative (Negative); Specific Gravity >= 1.030 (1.005-1.025); Urobilinogen 0.2 mg/dL (Up to 0.2); pH 5.5 (5-8)
[2023-01-10 22:05] LABS: Bacteria Few HPF (Negative); Epithelial Cells Negative HPF (Negative); WBC >50 HPF (0-5)
[2023-01-10 22:07] LABS: C & S Indicated? Yes; Crystals Moderate Uric Acid HPF (Negative); Mucus Negative (Negative)
== END 2023-01-10 18:33 | disposition home or self-care (01) ==
LOC: LBN 18:32
PROVIDERS: Visit Provider Internal Medicine Hematology & Oncology
DX: R30.0 Dysuria (principal); R82.998 Other abnormal findings in urine
CPT/HCPCS: 87077; 81003; 81015; 87086; 87186

== ENCOUNTER 2023-01-12 20:55 | Emergency (ER) | payer MEDICARE, OTHER, SELFPAY ==
[2023-01-12] VITALS (11 sets, daily range): BP systolic 113–159; BP diastolic 59–112; PULSE 102–116; RESP 12–25; TEMP 36.7–36.9; O2SAT 91–100
--- NOTE | 2023-01-12 21:24 | ED.GENADUL_ITS ---
Discharge Plan Disposition Patient Disposition: Transfer-Acute Inpatient Care Specific Acute Inpt Facility: [facility] Condition: Serious Discharge Details Clinical Impression: Sepsis due to urinary tract infection, Acute hyperkalemia, Cancer, Graft vs host disease Primary Care Provider: Unknown,Unknown ED Provider: Brie Arellano Home Meds and New Rx's Prescriptions: No Action bupropion HCl [Wellbutrin SR] 150 mg Tablet Sustained-Release 12 Hr 150 mg PO BID lisinopril 10 mg Tablet 20 mg PO QAM lorazepam [Ativan] 1 mg Tablet 1 mg PO TID magnesium 250 mg Tablet 250 mg PO BID multivitamin Tablet 1 tab PO DAILY Rx Instructions: therapeutic prochlorperazine maleate [Compazine] 10 mg Tablet 10 mg PO Q6H PRN Patient Comments: not taking rosuvastatin [Crestor] 20 mg Tablet 20 mg PO HS ruxolitinib 10 mg Tablet 10 mg PO BID tamsulosin 0.4 mg Capsule 0.4 mg PO DAILY sertraline 100 mg Tablet 150 mg PO DAILY ondansetron 8 mg Tablet,Disintegrating 8 mg PO Q8H PRN triamcinolone acetonide 0.1 % Paste 1 applic DENTAL TID Rx Instructions: use after food and/or drink and/or oral hygiene fluoride (sodium) [PreviDent 5000 Booster Plus] 1.1 % Paste 1 applic DENTAL DAILY lidocaine HCl 2 % Jelly In Applicator 1 applic TOPICAL BID-QID PRN oxycodone 5 mg Tablet 10 - 20 mg PO Q3H PRN PRNQty: 0 0RF diphenhydramine HCl 25 mg Capsule 25 mg PO HS Qty: 0 0RF fentanyl 25 mcg/hr Patch 72 Hour 25 mcg transdermal Q72H Qty: 2 0RF naproxen 500 mg Tablet 500 mg PO HS Qty: 0 0RF amoxicillin-pot clavulanate 875-125 mg tablet 1 tab PO BID Qty: 10 0RF Medical Decision Making History from patient, family at bedside, and [facility] record review. 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 Currently being treated for UTI with cipro with some improvement. Family also notes he has been not like his usual self and has been picking at the air. Reviewed advance direction with patient and ex- Nancy (designated decision maker) at bedside, desire treatment and curative innervations so long a reasonable quality of life can be anticipated afterwards. Tachycardiac to low 100's on arrival, vital signs otherwise reassuring, afebrile. Lower abdomen tender with voluntary guarding. Dilaudid and zofran for symptoms. Broad differential in this chronically/terminally ill gentleman. Not overtly septic on arrival and not currently immunocompromised; does appear somewhat dry on exam. Given 1L IVFB, labs ordered including blood and urine cultures. EKG sinus tachycardia, no ischemic changes, T waves in V2/V3 slightly abnormal but would not characterized as peaked. Labs reviewed as below, CBC with leukocytosis at 14.03 and anemia with Hg of 8.8 (7.3 on 05/28/20 here). Given currently treated for UTI, will treat as sepsis with further fluid resus and IV abx for urinary vs abodminal source. Lactic normal. CMP with worsening kidney function, Cr 2.3 (from 1.4 in 2020), slight hyperkalemia at 6.0. May be hemolyzed however with worsening kidney function suspect likely is real. No clear EKG changes, would not treat emergently with calcium/albuterol/etc as EKG is overall reassuring, no lasix as I do believe he is already volume down and Cr possibly/likely prerenal in nature. Will avoid further NS, 2nd bolus ordered of LR and will repeat BMP afterwards. Given his guarding on exam I do believe the benefits of a contrasted CT study outweigh the theoretical risks of modern contrast and will proceed with contrasted imaging. CTs independently reviewed, no intracranial bleed, no bowel obstruction. Agree with radiology reads below. UA equivocal for UTI. Repeat BMP with K of 5.8. Patient 2L into fluid resus; will give additional liter and 40mg lasix, balancing resus/fluids with diuresis for mild hyperkalemia. Warrants admission, regrettably no beds at [facility] at the moment. Given that he follows closely with [facility] for [place]ology, reached out to them and while they do not have beds at the moment they would like him to come to them in transfer with plan for later this morning when they have capacity. Accepted under Dr. Mane, plan for transfer to [facility] later today (though if beds open up here before then would also consider admitting to [facility]). In the meantime will remain in the ED; mIVF, recurring abx, and q4 BMPs ordered for now. Potassium thus far downtrending 6.0 -> 5.8 -> 5.5. HR improving, now in 90's. Attempted to reach out to ex- this morning regarding patient's home medications (he does not recall what he takes in the morning) without success. Signed out to oncoming physician, plan to transfer to [facility] when bed available, attempt to clarify home meds with Nancy when able to contact her. Imaging Data Radiologic Study: Imaging: CT Scan Radiologist's impression: No acute intracranial process is detected Radiologic Study #2: Imaging: CT Scan Radiologist's impression: IMPRESSION: 1. ? No significant change in appearance of consolidation and multiple pulmonary parenchymal lesions consistent with metastatic disease. 2. ? No evidence of aortic aneurysm or dissection. 3. ? Large presacral mass again noted. Lab Data Lab results reviewed: Yes I reviewed the patient's lab results. Labs: 01/12/23 21:52 Urine - Clean Catch Urine Culture - Pending 01/12/23 22:14 Blood Blood Culture - Pending 01/12/23 22:10 Blood Blood Culture - Pending Laboratory Tests Range/Units 01/12/23 01/12/23 01/12/23 21:50 21:50 21:50 WBC (4.4-10.8) 10^3/uL 14.03 H RBC (4.36-5.78) 10^6/uL 3.41 L Hgb (13.5-17.5) g/dL 8.8 L Hct (40.0-50.0) % 29.1 L MCV (80-95) fL 85 MCH (27.0-33.0) pg 25.8 L MCHC (32.0-36.0) % 30.2 L RDW (11.8-14.1) % 19.4 H Plt Count (130-400) 10^3/uL 573 H MPV (8.0-11.0) fL 9.0 Immature Gran % 0.6 Neutrophils % 82.5 Lymphocytes % 8.1 Monocytes % 8.6 Eosinophils % 0.1 Basophils % 0.1 Nucleated RBC % (0.0-0.3) % 0.0 Absolute Neutrophils (1.2-6.7) 10^3/uL 11.57 H Absolute Lymphocytes (1.2-3.4) 10^3/uL 1.14 L Absolute Monocytes (0.1-0.8) 10^3/uL 1.21 H Absolute Eosinophils (0.0-0.7) 10^3/uL 0.01 Absolute Basophils (0.0-0.2) 10^3/uL 0.01 PT (9.3-11.0) sec 11.8 H INR (0.9-1.1) 1.2 H APTT (21.5-31.9) sec 29.6 VBG Lactate (0.6-1.4) mmol/L Sodium (136-145) mmol/L 137 Potassium (3.5-5.1) mmol/L 6.0 H Chloride (98-107) mmol/L 104 Carbon Dioxide (21.0-32.0) mmol/L 20.5 L Anion Gap (3-11) mmol/L 12.5 H BUN (7-18) mg/dL 73 H Creatinine (0.70-1.30) mg/dL 2.3 H Est GFR (CKD-EPI 2020) (mL/min/1.73m2) 33.96 Glucose (74-106) mg/dL 110 H Calcium (8.5-10.1) mg/dL 9.1 Magnesium (1.8-2.4) mg/dL 2.5 H Total Bilirubin (0.2-1.0) mg/dL 0.6 AST (15-37) U/L 37 ALT (16-63) U/L 53 Alkaline Phosphatase (46-116) U/L 295 H Troponin I (<or=60) ng/L < 50 NT-Pro-B Natriuret Pep (<300) pg/mL 56 Total Protein (6.4-8.2) g/dL 7.2 Albumin (3.4-5.0) g/dL 2.0 L Amylase (25-115) U/L 46 Lipase (16-77) U/L 29 Urine Color (Yellow) Urine Clarity (Clear) Urine pH (5-8) Ur Specific Lead (1.005-1.025) Urine Protein (Negative) mg/dL Urine Ketones (Negative) mg/dL Urine Blood (Negative) Urine Nitrite (Negative) Urine Bilirubin (Negative) Urine Urobilinogen (Up to 0.2) mg/dL Ur Leukocyte Esterase (Negative) Urine RBC (0-2) HPF Urine WBC (0-5) HPF Ur Epithelial Cells (Negative) HPF Urine Crystals (Negative) HPF Urine Bacteria (Negative) HPF Urine Casts (Negative) LPF Urine Mucus (Negative) Ur Culture Indicated? Urine Glucose (Negative) mg/dL Range/Units 01/12/23 01/13/23 01/13/23 21:52 00:55 00:55 WBC (4.4-10.8) 10^3/uL RBC (4.36-5.78) 10^6/uL Hgb (13.5-17.5) g/dL Hct (40.0-50.0) % MCV (80-95) fL MCH (27.0-33.0) pg MCHC (32.0-36.0) % RDW (11.8-14.1) % Plt Count (130-400) 10^3/uL MPV (8.0-11.0) fL Immature Gran % Neutrophils % Lymphocytes % Monocytes % Eosinophils % Basophils % Nucleated RBC % (0.0-0.3) % Absolute Neutrophils (1.2-6.7) 10^3/uL Absolute Lymphocytes (1.2-3.4) 10^3/uL Absolute Monocytes (0.1-0.8) 10^3/uL Absolute Eosinophils (0.0-0.7) 10^3/uL Absolute Basophils (0.0-0.2) 10^3/uL PT (9.3-11.0) sec INR (0.9-1.1) APTT (21.5-31.9) sec VBG Lactate (0.6-1.4) mmol/L Sodium (136-145) mmol/L 137 Potassium (3.5-5.1) mmol/L 5.8 H Chloride (98-107) mmol/L 106 Carbon Dioxide (21.0-32.0) mmol/L 20.6 L Anion Gap (3-11) mmol/L 10.4 BUN (7-18) mg/dL 67 H Creatinine (0.70-1.30) mg/dL 2.1 H Est GFR (CKD-EPI 2020) (mL/min/1.73m2) 37.88 Glucose (74-106) mg/dL 134 H Calcium (8.5-10.1) mg/dL 8.3 L Magnesium (1.8-2.4) mg/dL Total Bilirubin (0.2-1.0) mg/dL AST (15-37) U/L ALT (16-63) U/L Alkaline Phosphatase (46-116) U/L Troponin I (<or=60) ng/L < 50 NT-Pro-B Natriuret Pep (<300) pg/mL Total Protein (6.4-8.2) g/dL Albumin (3.4-5.0) g/dL Amylase (25-115) U/L Lipase (16-77) U/L Urine Color (Yellow) Yellow Urine Clarity (Clear) Clear Urine pH (5-8) 5.0 Ur Specific Lead (1.005-1.025) >= 1.030 H Urine Protein (Negative) mg/dL >=300 H Urine Ketones (Negative) mg/dL Negative Urine Blood (Negative) Large H Urine Nitrite (Negative) Negative Urine Bilirubin (Negative) Negative Urine Urobilinogen (Up to 0.2) mg/dL 0.2 Ur Leukocyte Esterase (Negative) Trace H Urine RBC (0-2) HPF 5-10 H Urine WBC (0-5) HPF 5-10 Ur Epithelial Cells (Negative) HPF Few Urine Crystals (Negative) HPF Moderate Uric Acid Urine Bacteria (Negative) HPF Few Urine Casts (Negative) LPF Negative Urine Mucus (Negative) Negative Ur Culture Indicated? C&S Done As Ordered Urine Glucose (Negative) mg/dL Negative Range/Units 01/13/23 00:55 WBC (4.4-10.8) 10^3/uL RBC (4.36-5.78) 10^6/uL Hgb (13.5-17.5) g/dL Hct (40.0-50.0) % MCV (80-95) fL MCH (27.0-33.0) pg MCHC (32.0-36.0) % RDW (11.8-14.1) % Plt Count (130-400) 10^3/uL MPV (8.0-11.0) fL Immature Gran % Neutrophils % Lymphocytes % Monocytes % Eosinophils % Basophils % Nucleated RBC % (0.0-0.3) % Absolute Neutrophils (1.2-6.7) 10^3/uL Absolute Lymphocytes (1.2-3.4) 10^3/uL Absolute Monocytes (0.1-0.8) 10^3/uL Absolute Eosinophils (0.0-0.7) 10^3/uL Absolute Basophils (0.0-0.2) 10^3/uL PT (9.3-11.0) sec INR (0.9-1.1) APTT (21.5-31.9) sec VBG Lactate (0.6-1.4) mmol/L 0.8 Sodium (136-145) mmol/L Potassium (3.5-5.1) mmol/L Chloride (98-107) mmol/L Carbon Dioxide (21.0-32.0) mmol/L Anion Gap (3-11) mmol/L BUN (7-18) mg/dL Creatinine (0.70-1.30) mg/dL Est GFR (CKD-EPI 2020) (mL/min/1.73m2) Glucose (74-106) mg/dL Calcium (8.5-10.1) mg/dL Magnesium (1.8-2.4) mg/dL Total Bilirubin (0.2-1.0) mg/dL AST (15-37) U/L ALT (16-63) U/L Alkaline Phosphatase (46-116) U/L Troponin I (<or=60) ng/L NT-Pro-B Natriuret Pep (<300) pg/mL Total Protein (6.4-8.2) g/dL Albumin (3.4-5.0) g/dL Amylase (25-115) U/L Lipase (16-77) U/L Urine Color (Yellow) Urine Clarity (Clear) Urine pH (5-8) Ur Specific Lead (1.005-1.025) Urine Protein (Negative) mg/dL Urine Ketones (Negative) mg/dL Urine Blood (Negative) Urine Nitrite (Negative) Urine Bilirubin (Negative) Urine Urobilinogen (Up to 0.2) mg/dL Ur Leukocyte Esterase (Negative) Urine RBC (0-2) HPF Urine WBC (0-5) HPF Ur Epithelial Cells (Negative) HPF Urine Crystals (Negative) HPF Urine Bacteria (Negative) HPF Urine Casts (Negative) LPF Urine Mucus (Negative) Ur Culture Indicated? Urine Glucose (Negative) mg/dL HPI General Mode of arrival: ambulatory . Date/Time Provider Initiated Documentation: 01/12/23 21:10 . Limitations to Documentation: no limitations . Information obtained by: patient and family . 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 Symptoms have been present for 3-4 days; is being treating with cipro for possible UTI with some improvement in pain within a day after starting the cipro. Minimal PO intake today and yesterday and family at bedside report he has been confused, 'picking at things' in the air. Some nausea with PO, no vomiting, no change in stooling. No fevers, chills, rash, dysuria, hematuria, chest pain, shortness of breath, numbness, tingling, weakness, or other concerns. Reviewed advance direction with patient and ex- Nancy (designated decision maker) at bedside, desire treatment and curative innervations so long a reasonable quality of life can be anticipated afterwards. Related Data Home Medications Medication Instructions Recorded Confirmed bupropion HCl 150 mg tablet,12 hr 150 mg PO BID 05/28/20 09/07/22 sustained-release (Wellbutrin SR) lisinopril 10 mg tablet 20 mg PO QAM 05/28/20 09/07/22 lorazepam 1 mg tablet (Ativan) 1 mg PO TID 05/28/20 09/07/22 magnesium 250 mg tablet 250 mg PO BID 05/28/20 09/07/22 multivitamin 1 tab PO DAILY 05/28/20 09/07/22 prochlorperazine maleate 10 mg 10 mg PO Q6H PRN 05/28/20 05/28/20 tablet (Compazine) rosuvastatin 20 mg tablet (Crestor) 20 mg PO HS 05/28/20 09/07/22 ruxolitinib 10 mg tablet 10 mg PO BID 05/28/20 09/07/22 sertraline 100 mg tablet 150 mg PO DAILY 09/07/22 09/08/22 tamsulosin 0.4 mg capsule 0.4 mg PO DAILY 09/07/22 09/07/22 amoxicillin 875 mg-potassium 1 tab PO BID #10 tabs 09/08/22 clavulanate 125 mg tablet diphenhydramine HCl 25 mg capsule 25 mg PO HS #0 caps 09/08/22 fentanyl 25 mcg/hr transdermal 25 mcg transdermal Q72H #2 ea 09/08/22 patch fluoride (sodium) 1.1 % dental 1 applic dental DAILY 09/08/22 09/08/22 paste (PreviDent 5000 Booster Plus) lidocaine HCl 2 % mucosal jelly in 1 applic topical BID-QID PRN 09/08/22 09/08/22 applicator naproxen 500 mg tablet 500 mg PO HS #0 tabs 09/08/22 ondansetron 8 mg disintegrating 8 mg PO Q8H PRN 09/08/22 09/08/22 tablet oxycodone 5 mg tablet 10 - 20 mg PO Q3H PRN PRN #0 tabs 09/08/22 triamcinolone acetonide 0.1 % 1 applic dental TID 09/08/22 09/08/22 dental paste Previous Rx's Medication Instructions Recorded amoxicillin 875 mg-potassium 1 tab PO BID #10 tabs 09/08/22 clavulanate 125 mg tablet diphenhydramine HCl 25 mg capsule 25 mg PO HS #0 caps 09/08/22 fentanyl 25 mcg/hr transdermal 25 mcg transdermal Q72H #2 ea 09/08/22 patch naproxen 500 mg tablet 500 mg PO HS #0 tabs 09/08/22 oxycodone 5 mg tablet 10 - 20 mg PO Q3H PRN PRN #0 tabs 09/08/22 Allergies Allergy/AdvReac Type Severity Reaction Status Date / Time morphine AdvReac Intermediate Nausea Unverified 01/12/23 21:03 General Stated Complaint: GenMedical JAIMIE: 3 Review of Systems Narrative: see HPI PFSH All Active Problems (Updated 01/13/23 @ 04:12 by Brie Arellano MD) Sepsis due to urinary tract infection (Acute) Acute hyperkalemia (Acute) Cancer (Acute) Graft vs host disease (Acute) Psoas muscle strain (Acute) Intra-abdominal fluid (Acute) Bladder mass (Acute) Acute kidney injury (Acute) Transaminitis (Acute) Colon cancer (Chronic) Surgical History Bone marrow replaced by transplant Social History Smoking/Tobacco Use Status: Never Smoking risk assessment performed?: Yes Alcohol Intake: current Alcohol Intake frequency: holidays/special occasions only Substance use type: marijuana Details: medical marijuana Do you feel safe at home: Yes Do you feel safe in your relationship?: Yes Exam Narrative Exam Narrative: General: Pale, chronically ill appearing, in no acute distress. Head: Normocephalic, atraumatic Neck: Trachea midline, Neck supple. ENT: Dry MM. No oropharygeal lesions or exudate. Cardiac: Tachycardiac, regular, no murmurs appreciated Resp: No respiratory distress. CTAB. Abd: Soft, non-distended. Lower abdominal and suprapubic tenderness with some guarding. Extremities: No deformities. No peripheral edema. Neurologic: GCS 15. Moves all extremities freely against gravity Course Vital Signs Vital signs: Vital Signs Temperature 36.9 C 01/12/23 20:59 Pulse 116 H 01/12/23 20:59 Respiratory Rate 15 01/12/23 20:59 Blood Pressure 113/77 01/12/23 20:59 Pulse Oximetry 98 01/12/23 20:59 Temperature 36.7 C 01/12/23 21:23 Temperature Source Tympanic 01/12/23 21:23 Pulse 116 H 01/12/23 20:59 Respiratory Rate 15 01/12/23 20:59 Respiratory Effort Non-Labored 01/12/23 21:17 Respiratory Depth Shallow 01/12/23 21:17 Respiratory Pattern Normal 01/12/23 21:17 Blood Pressure 113/77 01/12/23 20:59 Pulse Oximetry 98 01/12/23 20:59 Oxygen Delivery Method Room Air 01/12/23 20:59 Oxygen Flow Rate 0 01/12/23 20:59 Critical Care Time Critical Care Time Total Critical Care Time: 32 Attestation: Due to a high probability of clinically significant, life threatening deterioration, the patient required my highest level of preparedness to intervene emergently and I personally spent this critical care time directly and personally managing the patient. This critical care time included obtaining a history; examining the patient; pulse oximetry; ordering and review of studies; arranging urgent treatment with development of a management plan; evaluation of patient's response to treatment; frequent reassessment; and, discussions with other providers. This critical care time was performed to assess and manage the high probability of imminent, life-threatening deterioration that could result in multi-organ failure. It was exclusive of separately billable procedures. Sign Out Sign Out Data: Sign Out Comment: 47yo M with FAP, S4 colon cancer, graft vs host, not currently on chemo, here with lower abdominal pain/malaise/confusion. Tachycardiac, normotensive, normal lactic. -Treating as urosepsis, fluid resus, HR improved - K of 6.0, EKG without significant changes. Lasix + bolus after initial resus, getting q4 BMPs -No [facility] beds overnight -Accepted to [facility] [place] (follows with oncology/palliative care there), no beds overnight anticipated some this morning Last updated by Brie Arellano MD at 01/13/23 04:05
--- NOTE | 2023-01-12 21:30 | RT.EKG_ITS ---
APPROVED REPORT Exam: Resting ECG Reason for Exam: tachycardia Patient Location: E HR:106 bpm ECG Measurements Heart Rate 106 AXIS TX 143 P 44 QRSd 89 QRS -20 QT 323 T 8 QTc 430 Conclusion Sinus tachycardia...rate> [address] segment or T wave abnormalities to suggest occlusive MS
[2023-01-12] MEDS: Normal Saline 1,000 ML 1000 ML IV (22:00)
[2023-01-12] MEDS: fentaNYL 100 MCG/2 ML VIAL 50 MCG IVP (22:00)
[2023-01-12 22:01] LABS: Abs Immature Grans 0.09 10^3/uL (0.0-0.06); Absolute Neutrophil Count 11.57 10^3/uL (1.2-6.7); Basophils % 0.1; Eosinophils % 0.1; HCT 29.1 % (40.0-50.0); HGB 8.8 g/dL (13.5-17.5); Immature Grans % 0.6; Lymphocytes % 8.1; MCH 25.8 pg (27.0-33.0); MCHC 30.2 % (32.0-36.0); MCV 85 fL (80-95); Monocytes % 8.6; Neutrophils % 82.5; Platelet Count 573 10^3/uL (130-400); RBC 3.41 10^6/uL (4.36-5.78); RDW 19.4 % (11.8-14.1); RDW-SD 60.6 fL; WBC 14.03 10^3/uL (4.4-10.8)
[2023-01-12 22:02] LABS: Absolute Basophil Count 0.01 10^3/uL (0.0-0.2); Absolute Eosinophil Count 0.01 10^3/uL (0.0-0.7); Absolute Lymphocyte Count 1.14 10^3/uL (1.2-3.4); Absolute Monocyte Count 1.21 10^3/uL (0.1-0.8)
[2023-01-12 22:14] LABS: INR 1.2 (0.9-1.1); PTT Activated 29.6 sec (21.5-31.9); Prothrombin Time 11.8 sec (9.3-11.0)
--- NOTE | 2023-01-12 22:15 | DI.CT_ITS ---
Exam(s) CT HEAD WO EXAM: CT HEAD WO CLINICAL HISTORY: altered mental status. TECHNIQUE: Imaging Protocol: Axial computed tomography images with coronal and sagittal reformatted images were created and reviewed COMPARISON: No exams were available for comparison FINDINGS: There are no skull fractures. There is no fluid in the visualized paranasal sinuses. There is no evidence of intracranial hemorrhage, mass effect, or shift of midline structures. There are no extra-axial fluid collections. The ventricles are not enlarged or shifted and there is no blo od within the ventricular system nor within the basal cisterns. There is symmetrical bifrontal atrophy. IMPRESSION: No acute intracranial findings on this noninfused CT scan of the brain. Symmetrical bifrontal atrophy noted RADIATION DOSE DELIVERED: 791.37mGy.cm Total DLP DATA REPOSITORY: All CT scans at this facility are submitted to the National Radiology Data Registry (NRDR) Dose Index Registry (DIR) with the [employer] ([employer]). RADIATION OPTIMIZATION: All CT scans at this facility use at least one of these dose optimization te chniques: automated exposure control; mA and/or kV adjustment per patient size (includes targeted exa ms where dose is matched to clinical indication); or iterative reconstruction.
[2023-01-12 22:21] LABS: ALT 53 U/L (16-63); AST 37 U/L (15-37); Alkaline Phosphatase 295 U/L (46-116); Amylase 46 U/L (25-115); Anion Gap 12.5 mmol/L (3-11); BUN 73 mg/dL (7-18); Bilirubin, Total 0.6 mg/dL (0.2-1.0); CO2 20.5 mmol/L (21.0-32.0); CREATININE 2.3 mg/dL (0.70-1.30); Calcium 9.1 mg/dL (8.5-10.1); Chloride 104 mmol/L (98-107); Estimated GFR 33.96 (mL/min/1.73m2); Glucose 110 mg/dL (74-106); Lipase 29 U/L (16-77); Magnesium 2.5 mg/dL (1.8-2.4); NT-proBNP 56 pg/mL (<300); Sodium 137 mmol/L (136-145); Total Protein 7.2 g/dL (6.4-8.2)
[2023-01-12 22:22] LABS: Troponin I < 50 ng/L (<or=60)
--- NOTE | 2023-01-12 22:27 | DI.CT_ITS ---
Exam(s) CT CHEST PE ABD PELVIS W EXAM: CT CHEST PE ABD PELVIS W CLINICAL HISTORY: tachycardia, active cancer, lower abdominal pain with guarding. TECHNIQUE: Imaging Protocol: Axial CT angiography was performed with multi-slice acquisition and m ulti-planar and/or 3D reconstructions. CONTRAST MATERIAL: Intravenous: Omnipaque 350 Contrast volume:100 ml Oral: None COMPARISON: CT CT CHEST/ABD/PEL W from 12/26/2022 FINDINGS: CHEST: PULMONARY ARTERIES: There are no intra-arterial filling defects to suggest the presence of acute pulm onary emboli. LUNGS: There is a pleural base malignant-appearing mass in the posterior basal segment of the right lower lobe which measures 3 cm wide by 2 cm AP by 2.6 cm cephalocaudal and just below this is another similar but smaller pleural based lesion measuring 1.5 by 1.0 cm..In addition, there are numerous bi lateral metastatic appearing nodules throughout both lung casey, most of these exhibiting mild centr al cavitation. The largest of these nodules in the right lung measures 1.61.1 cm. The largest in th e left lung measures 1.6 by 1.4 cm. There is also infiltrate extending from the right hilum to the r ight lower lobe pleural surface similar to previous. Also some right parahilar infiltrate. There ar e no pleural effusions. MEDIASTINUM: Right hilum abnormal density is continuous with the right-sided infiltrate and may repre sent at adenopathy. There is mild subcarinal adenopathy. Left hilum appears unremarkable. No supra clavicular adenopathy. No axillary adenopathy. Visualized thyroid unremarkable. CARDIAC: Heart size is normal. There is no pericardial effusion. There is no significant shift of t he interventricular septum.Caliber of the thoracic aorta is within normal limits. No evidence of dis section. OSSEOUS: No significant osseous lesions.. ABDOMEN: There is no ascites. LIVER: There are no focal hepatic lesions nor dilatation of intrahepatic ducts. GALLBLADDER/BILIARY: There is a small polyp in the gallbladder. No calcified gallstones. No gallbla dder wall edema. CBD is not dilated. PANCREAS: No evidence of pancreatic mass nor dilatation of the pancreatic duct. SPLEEN: Spleen is not enlarged. There are no intrasplenic lesions. Splenic and portal veins are castle nt. ADRENALS: There are no significant adrenal masses. KIDNEYS:There cortical cysts in both kidneys again noted and there calculi in lower pole calyx of the left kidney again noted. However, there is now bilateral hydronephrosis and hydroureter more so nicole n previous. The upper ureters are both dilated to diameter of 8-9 mm. Level of bilateral ureteral o bstruction is in the pelvis below the iliac vessels.. Large mass in left side of the urinary bladder partially exophytic is again noted. There is also a loculated large mass now evident in the lower p lou not previously present, this presacral mass measuring approximately 10 cm AP x 7 cm wide with c ombination of solid and cystic components. Does not contain gas. ABDOMINAL AORTA: Abdominal aorta is not enlarged. LYMPH NODES: There is no retroperitoneal or para-aortic adenopathy. ABDOMINAL WALL/GI: No evidence of significant anterior abdominal wall hernia. Multiple levels of bow el surgery. There has been prior colectomy. PELVIS: LYMPH NODES: There is no intrapelvic nor inguinal adenopathy. GI: Prior colectomy. URINARY BLADDER: Large urinary bladder wall mass on the left side again noted. Masses seen both in t he lumen and exophytic posterior left. This mass is continuous with the prostate gland. Urinary claude dder is not distended but the remainder of the wall is uniformly thickened. REPRODUCTIVE: As above. OSSEOUS: No significant osseous lesions. No fractures. Chronic disc space narrowing L5-S1 level. IMPRESSION: 1. No evidence of acute pulmonary emboli nor pulmonary infarction. 2. There is a malignant-appearing mass in the right lower lobe posterior basal segment with measureme nts as above and there are multiple metastatic nodules throughout both lung casey, slightly increase d in size and number from the previous study. Right parahilar-hilar infiltrate is also seen extendin g to the pleural surface, as was previously present.. 3. There is now significant symmetrical bilateral hydronephrosis and hydroureter with the ureters linda ng obstructed in the lower pelvis below the level of the iliac vessels. There is again noted a large asymmetric center and left of center mass invading the urinary bladder similar to previous. This is either a primary bladder tumor with extension through the bladder to involve the prostate or aggress violeta prostate malignancy invading the bladder. 4. In addition, there is now a presacral mass measuring approximately 10 by 7 cm which has both fluid and above fluid Hounsfield units but no gas therein.. This finding was not evident on the CT scan o f 12/26/2022. Therefore may represent aggressive neoplastic tissue although cannot exclude abscess a nd correlation with clinical presentation is recommended. 5. There has been prior colectomy low anastomosis.. Small bowel loop diameters are upper normal. No true bowel obstruction. No free air. Report called by myself to ER physician 01/13/2023 at 10:30 a.m. RADIATION DOSE DELIVERED: 1,355.24mGy.cm Total DLP DATA REPOSITORY: All CT scans at this facility are submitted to the National Radiology Data Registry (NRDR) Dose Index Registry (DIR) with the [employer] (ACR). RADIATION OPTIMIZATION: All CT scans at this facility use at least one of these dose optimization te chniques: automated exposure control; mA and/or kV adjustment per patient size (includes targeted exa ms where dose is matched to clinical indication); or iterative reconstruction.
[2023-01-12] MEDS: Omnipaque 350 MG/ML 100 ML BTL IJ (22:40)
[2023-01-12] MEDS: Normal Saline Flush 10 ML SYR IVP (22:44)
[2023-01-12] MEDS: Normal Saline - Diluent 50 ML VIAL IJ (22:44)
[2023-01-12 23:05] LABS: Bilirubin Negative (Negative); Blood Large (Negative); Clarity Clear (Clear); Glucose Negative (Negative); Ketones Negative (Negative); Leukocyte Esterase Trace (Negative); Nitrite Negative (Negative); Specific Gravity >= 1.030 (1.005-1.025); Urobilinogen 0.2 mg/dL (Up to 0.2)
[2023-01-12 23:14] LABS: Bacteria Few HPF (Negative); C & S Indicated? C&S Done As Ordered; Casts Negative LPF (Negative); Crystals Moderate Uric Acid HPF (Negative); Epithelial Cells Few HPF (Negative); Mucus Negative (Negative)
[2023-01-12] MEDS: Lactated Ringers 1,000 ML 1000 ML IV (23:18)
[2023-01-12] MEDS: CEFEPIME 1 GM in Normal Saline 50 ML IVPB (23:18)
[2023-01-12] MEDS: HYDROmorphone 2 MG/ML SYR 1 MG IVP (23:35)
--- NOTE | 2023-01-12 23:36 | DI.VRAD_ITS ---
PROCEDURE INFORMATION: Exam: CT Head Without Contrast Exam date and time: 01/12/2023 10:49 PM Age: 47 years old Clinical indication: Altered mental status/memory loss; Confusion or disorientation; Patient HX: AMS TECHNIQUE: Imaging protocol: Computed tomography of the head without contrast. Radiation optimization: All CT scans at this facility use at least one of these dose optimization techniques: automated exposure control; mA and/or kV adjustment per patient size (includes targeted exams where dose is matched to clinical indication); or iterative reconstruction. COMPARISON: No relevant prior studies available. FINDINGS: Brain: Cerebral sulci show bilateral symmetry with no supratentorial mass or mass effect detected. Brainstem and cerebellum are unremarkable. There is no evidence of acute transcortical infarction or recent intracranial hemorrhage. Cerebral ventricles: Ventricular and cisternal spaces are normal in size and configuration and there is no midline shift or hydrocephalus seen. Paranasal sinuses: Grossly clear throughout. Mastoid air cells: Grossly clear bilaterally. Bones/joints: Bony calvarium and skull base are intact and no acute fractures are detected. Soft tissues: Unremarkable. IMPRESSION: No evidence of acute transcortical infarction, recent intracranial hemorrhage or hydrocephalus. No acute intracranial process is detected. Dictated and Authenticated by: Sherman Braden MD. Ordering:BO Baird MD
[2023-01-13] VITALS (39 sets, daily range): BP systolic 112–145; BP diastolic 71–88; PULSE 87–103; RESP 12–30; O2SAT 95–98
[2023-01-13] MEDS: Ondansetron 4 MG/2 ML VIAL IVP (00:04)
--- NOTE | 2023-01-13 00:14 | DI.VRAD_ITS ---
PROCEDURE INFORMATION: Exam: CTA Chest With Contrast CTA Abdomen With Contrast Exam date and time: 01/12/2023 11:06 PM Age: 47 years old Clinical indication: Localized; Other: Tachcardia, active cancer; Prior surgery; Surgery date: 1-6 months; Surgery type: Port placed; Patient HX: Tachycardia, active cancer, lower abdominal pain with guarding; Additional info: Colon, bladder and lung CA TECHNIQUE: Imaging protocol: Computed tomographic angiography of the chest with contrast. Exam focused on the arteries. Computed tomographic angiography of the abdomen with contrast. Exam focused on the arteries. 3D rendering (Not supervised by radiologist): MIP and/or 3D reconstructed images were created by the technologist. Radiation optimization: All CT scans at this facility use at least one of these dose optimization techniques: automated exposure control; mA and/or kV adjustment per patient size (includes targeted exams where dose is matched to clinical indication); or iterative reconstruction. Contrast material: OMNIPAQUE 350; Contrast volume: 80 ml; Contrast route: INTRAVENOUS (IV); COMPARISON: CT CHEST PE CTA 05/28/2020 3:52 PM FINDINGS: Tubes, catheters and devices: A right chest port is noted in place. VASCULATURE: Pulmonary arteries: Normal. No pulmonary emboli. Aorta: No aortic aneurysm. No aortic dissection. Celiac trunk and mesenteric arteries: No occlusion or significant stenosis. Renal arteries: No occlusion or significant stenosis. CHEST: Lungs: There is redemonstration of multiple round parenchymal lesions throughout the bilateral lung casey, consistent with lung metastasis. There is a cavitating appearance of these lesions. A prominent 3.2 cm lung mass again noted at the right lung base. Right perihilar masslike consolidation again noted extending into the right lung base. Pleural spaces: No pneumothorax. No pleural effusion. Heart: No cardiomegaly. No pericardial effusion. ABDOMEN AND PELVIS: Liver: Unremarkable liver. No mass identified. Gallbladder and bile ducts: The gallbladder is unremarkable. No calcified stones. No ductal dilation. Pancreas: No pancreatic lesion seen. Spleen: The spleen is unremarkable. No splenomegaly. Adrenal glands: The adrenal glands are unremarkable. No defined mass. No ductal dilation. Kidneys and ureters: Bilateral hydroureteronephrosis noted. Bilateral simple appearing cysts are noted in the kidneys. Nonobstructing renal calculi noted on the left measuring up to 6 mm in diameter. Stomach and bowel: There is evidence of prior bowel resection noted. Intraperitoneal space: Unremarkable. No free air. No significant fluid collection. Urinary bladder: Urinary bladder wall thickening noted, greater on the left. Lymph nodes: Unremarkable. No enlarged lymph nodes. Bones/joints: No evidence of suspicious osseous lesion. A large presacral mass noted in the region of the sigmoid colon Soft tissues: Unremarkable. Other findings: The left vertebral artery originates from the aortic arch. IMPRESSION: 1. No significant change in appearance of consolidation and multiple pulmonary parenchymal lesions consistent with metastatic disease. 2. No evidence of aortic aneurysm or dissection. 3. Large presacral mass again noted. Dictated and Authenticated by: Paty Guerra MD. Ordering:BO Baird MD
[2023-01-13] MEDS: LINEZOLID 600 MG/300 ML BAG 300 MG IVPB ×2 (00:22→11:53)
[2023-01-13 01:04] LABS: Lactate 0.8 mmol/L (0.6-1.4)
[2023-01-13] MEDS: HYDROmorphone 2 MG/ML SYR 1 MG IVP ×6 (01:11→14:17)
[2023-01-13 01:25] LABS: Troponin I < 50 ng/L (<or=60)
[2023-01-13 01:26] LABS: Anion Gap 10.4 mmol/L (3-11); BUN 67 mg/dL (7-18); CO2 20.6 mmol/L (21.0-32.0); CREATININE 2.1 mg/dL (0.70-1.30); Calcium 8.3 mg/dL (8.5-10.1); Chloride 106 mmol/L (98-107); Estimated GFR 37.88 (mL/min/1.73m2); Glucose 134 mg/dL (74-106); Potassium 5.8 mmol/L (3.5-5.1); Sodium 137 mmol/L (136-145)
[2023-01-13] MEDS: Lactated Ringers 1,000 ML 1000 ML IV (02:44)
[2023-01-13] MEDS: Furosemide 40 MG/4 ML VIAL IVP (02:44)
[2023-01-13] MEDS: Lactated Ringers 1,000 ML 125 ML IV (05:16)
[2023-01-13 05:35] LABS: Anion Gap 10.6 mmol/L (3-11); BUN 63 mg/dL (7-18); CO2 21.4 mmol/L (21.0-32.0); Calcium 8.7 mg/dL (8.5-10.1); Chloride 105 mmol/L (98-107); Estimated GFR 40.16 (mL/min/1.73m2); Glucose 117 mg/dL (74-106); Potassium 5.5 mmol/L (3.5-5.1); Sodium 137 mmol/L (136-145)
[2023-01-13] MEDS: CEFEPIME 1 GM in Normal Saline 50 ML IVPB (09:04)
[2023-01-13 09:57] LABS: Anion Gap 11.7 mmol/L (3-11); BUN 63 mg/dL (7-18); CO2 21.3 mmol/L (21.0-32.0); CREATININE 2.2 mg/dL (0.70-1.30); Calcium 8.8 mg/dL (8.5-10.1); Chloride 106 mmol/L (98-107); Estimated GFR 35.82 (mL/min/1.73m2); Glucose 117 mg/dL (74-106); Sodium 139 mmol/L (136-145)
--- NOTE | 2023-01-13 10:00 | NUR.NOTE ---
Nursing Note: this RN reported Critical K 6.0 to provider
[2023-01-13 14:06] LABS: BUN 58 mg/dL (7-18); CREATININE 1.9 mg/dL (0.70-1.30); Calcium 8.7 mg/dL (8.5-10.1); Chloride 107 mmol/L (98-107); Estimated GFR 42.71 (mL/min/1.73m2); Glucose 120 mg/dL (74-106); Potassium 5.6 mmol/L (3.5-5.1); Sodium 139 mmol/L (136-145)
[2023-01-13] MEDS: Lisinopril 10 MG TAB PO (14:17)
[2023-01-13] MEDS: Tamsulosin 0.4 MG CAPCR PO (14:17)
--- NOTE | 2023-01-13 15:09 | ED.PROG_ITS ---
Date of service: 01/13/23 Time of Service: 15:09 Medical Decision Making Patient was able to void earlier however White catheter has been placed given evidence of bilateral hydronephrosis consider possible partial bladder outlet obstruction from pelvic mass. MILTON likely related to dehydration and postobstructive. Currently resting comfortably no acute distress. Patient was accepted to [facility] last night, have recently received callback from transfer center as a bed is available LV 1 WB unit, nurse to call for nurse nurse report [phone]. We are arranging transportation currently. 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 Tachycardiac, normotensive, normal lactic. -Treating as urosepsis, fluid resus, HR improved - K of 6.0, EKG without significant changes. Lasix + bolus after initial resus, getting q4 BMPs -No [facility] beds overnight -Accepted to [facility] (follows with oncology/palliative care there), no beds overnight anticipated some this morning Last updated by Brie Arellano MD at 01/13/23 04:05 Discharge Plan Disposition Patient Disposition: Transfer-Acute Inpatient Care Specific Acute Inpt Facility: [facility] Condition: Serious Discharge Details Clinical Impression: Sepsis due to urinary tract infection, Acute hyperkalemia, Cancer, Graft vs host disease Primary Care Provider: Unknown,Unknown ED Provider: Man Vizcarra Home Meds and New Rx's Prescriptions: No Action bupropion HCl [Wellbutrin SR] 150 mg Tablet Sustained-Release 12 Hr 150 mg PO BID lisinopril 10 mg Tablet 20 mg PO QAM lorazepam [Ativan] 1 mg Tablet 1 mg PO TID magnesium 250 mg Tablet 250 mg PO BID multivitamin Tablet 1 tab PO DAILY Rx Instructions: therapeutic prochlorperazine maleate [Compazine] 10 mg Tablet 10 mg PO Q6H PRN Patient Comments: not taking rosuvastatin [Crestor] 20 mg Tablet 20 mg PO HS ruxolitinib 10 mg Tablet 10 mg PO BID fentanyl 25 mcg/hr patch 72 hour 37 mcg transdermal Q72H tamsulosin 0.4 mg Capsule 0.4 mg PO DAILY sertraline 100 mg Tablet 200 mg PO DAILY ondansetron 8 mg Tablet,Disintegrating 8 mg PO Q8H PRN triamcinolone acetonide 0.1 % Paste 1 applic DENTAL TID Rx Instructions: use after food and/or drink and/or oral hygiene fluoride (sodium) [PreviDent 5000 Booster Plus] 1.1 % Paste 1 applic DENTAL DAILY lidocaine HCl 2 % Jelly In Applicator 1 applic TOPICAL BID-QID PRN oxycodone 5 mg Tablet 10 - 20 mg PO Q3H PRN PRNQty: 0 0RF diphenhydramine HCl 25 mg Capsule 25 mg PO HS Qty: 0 0RF naproxen 500 mg Tablet 500 mg PO HS Qty: 0 0RF amoxicillin-pot clavulanate 875-125 mg tablet 1 tab PO BID Qty: 10 0RF
== END 2023-01-13 15:48 | disposition short-term general hospital (02) ==
PROVIDERS: Student in an Organized Health Care Education/Training Program; Emergency Provider Emergency Medicine
DX: A41.9 Sepsis, unspecified organism (principal); E87.5 Hyperkalemia; D89.813 Graft-versus-host disease, unspecified; C18.9 Malignant neoplasm of colon, unspecified
CPT/HCPCS: 71275; 74177; 80048; 80053; 83690; 87040; 93005; 96361; 96365; 96366; 96367; 96375; 96376; 99291; 70450; 81003; 81015; 82150; 83605; 83735; 83880; 84484; 85025; 85610; 85730; 87086; 93010; J1170; J1940; J2020; J2405; J3010; J3490

== ENCOUNTER 2023-02-06 01:42 | Outpatient (RCR) | payer MEDICARE, OTHER, SELFPAY ==
[2023-02-06] MEDS: Normal Saline Flush 10 ML SYR IVP (13:16)
[2023-02-06] MEDS: Heparin 500 UNITS/5 ML SYRINGE IV (13:17)
[2023-02-06 13:32] LABS: Abs Immature Grans 0.03 10^3/uL (0.0-0.06); Absolute Basophil Count 0.03 10^3/uL (0.0-0.2); Absolute Eosinophil Count 0.26 10^3/uL (0.0-0.7); Absolute Lymphocyte Count 2.79 10^3/uL (1.2-3.4); Absolute Monocyte Count 1.06 10^3/uL (0.1-0.8); Absolute Neutrophil Count 4.51 10^3/uL (1.2-6.7); Basophils % 0.3; HCT 26.6 % (40.0-50.0); HGB 7.8 g/dL (13.5-17.5); Immature Grans % 0.3; Lymphocytes % 32.1; MCH 25.4 pg (27.0-33.0); MCHC 29.3 % (32.0-36.0); MCV 87 fL (80-95); MPV 9.2 fL (8.0-11.0); Monocytes % 12.2; Neutrophils % 52.1; Platelet Count 372 10^3/uL (130-400); RBC 3.07 10^6/uL (4.36-5.78); RDW 17.5 % (11.8-14.1); RDW-SD 55.9 fL; WBC 8.68 10^3/uL (4.4-10.8)
[2023-02-06 14:03] LABS: Diff Comment Diff Reviewed; Hypochromasia 2+; Polychromasia Present
[2023-02-06 14:08] LABS: ALT 39 U/L (16-63); AST 27 U/L (15-37); Albumin 2.2 g/dL (3.4-5.0); Alkaline Phosphatase 102 U/L (46-116); Anion Gap 8.9 mmol/L (3-11); BUN 14 mg/dL (7-18); Bilirubin, Total 0.2 mg/dL (0.2-1.0); CO2 27.1 mmol/L (21.0-32.0); CREATININE 1.8 mg/dL (0.70-1.30); Calcium 8.4 mg/dL (8.5-10.1); Chloride 104 mmol/L (98-107); Estimated GFR 45.57 (mL/min/1.73m2); Glucose 116 mg/dL (74-106); Potassium 3.8 mmol/L (3.5-5.1); Sodium 140 mmol/L (136-145); Total Protein 6.9 g/dL (6.4-8.2)
[2023-02-06 22:58] LABS: CEA 43.4 ng/mL (See Note)
== END 2023-02-25 23:59 | disposition home or self-care (01) ==
LOC: INF 01:42
PROVIDERS: Visit Provider Internal Medicine Hematology & Oncology
DX: C20 Malignant neoplasm of rectum (principal); C78.00 Secondary malignant neoplasm of unspecified lung; Z45.2 Encounter for adjustment and management of vascular access device
CPT/HCPCS: 36591; 80053; 96523; 82378; 85025

== ENCOUNTER 2023-03-16 09:31 | Outpatient (RCR) | payer MEDICARE, OTHER, SELFPAY ==
[2023-03-16] VITALS (9 sets, daily range): BP systolic 137–164; BP diastolic 79–99; PULSE 77–89; RESP 16–17; TEMP 36.2–36.7; O2SAT 95–98
[2023-03-16 10:19] LABS: HCT 21.7 % (40.0-50.0); MCH 24.4 pg (27.0-33.0); MCV 82 fL (80-95); MPV 10.2 fL (8.0-11.0); Platelet Count 355 10^3/uL (130-400); RBC 2.66 10^6/uL (4.36-5.78); RDW 17.2 % (11.8-14.1); RDW-SD 51.6 fL; WBC 12.84 10^3/uL (4.4-10.8)
[2023-03-16 10:31] LABS: HGB 6.5 g/dL (13.5-17.5)
[2023-03-16] MEDS: Heparin 500 UNITS/5 ML SYRINGE (10:57)
[2023-03-16] MEDS: Normal Saline Flush 10 ML SYR IVP (15:52)
== END 2023-03-28 23:59 | disposition home or self-care (01) ==
LOC: INF 09:31
PROVIDERS: Visit Provider Internal Medicine Hematology & Oncology
DX: C20 Malignant neoplasm of rectum (principal); C78.00 Secondary malignant neoplasm of unspecified lung; Z45.2 Encounter for adjustment and management of vascular access device
CPT/HCPCS: 36430; 36591; 85027; 86850; 86900; 86901; 86920; 86945; P9016

== ENCOUNTER 2023-04-06 09:00 | Outpatient (RCR) | payer MEDICARE, OTHER, SELFPAY ==
[2023-03-29 00:03] VITALS: BP 164/99; PULSE 78; RESP 17; TEMP 36.5
[2023-04-06] MEDS: Normal Saline Flush 10 ML SYR IVP (10:02)
[2023-04-06 10:21] LABS: Abs Immature Grans 0.06 10^3/uL (0.0-0.06); Absolute Basophil Count 0.03 10^3/uL (0.0-0.2); Absolute Eosinophil Count 0.17 10^3/uL (0.0-0.7); Basophils % 0.2; Eosinophils % 1.3; HCT 26.9 % (40.0-50.0); HGB 8.1 g/dL (13.5-17.5); Immature Grans % 0.5; Lymphocytes % 20.7; MCH 25.4 pg (27.0-33.0); MCHC 30.1 % (32.0-36.0); MCV 84 fL (80-95); MPV 9.1 fL (8.0-11.0); Monocytes % 8.7; Neutrophils % 68.6; Platelet Count 468 10^3/uL (130-400); RBC 3.19 10^6/uL (4.36-5.78); RDW 18.2 % (11.8-14.1); RDW-SD 55.8 fL; WBC 12.83 10^3/uL (4.4-10.8)
[2023-04-06 10:23] LABS: Absolute Lymphocyte Count 2.66 10^3/uL (1.2-3.4); Absolute Monocyte Count 1.12 10^3/uL (0.1-0.8)
[2023-04-06 10:30] LABS: ALT 78 U/L (16-63); AST 63 U/L (15-37); Albumin 1.9 g/dL (3.4-5.0); Alkaline Phosphatase 102 U/L (46-116); Anion Gap 8.8 mmol/L (3-11); BUN 17 mg/dL (7-18); Bilirubin, Total 0.2 mg/dL (0.2-1.0); CO2 27.2 mmol/L (21.0-32.0); CREATININE 1.4 mg/dL (0.70-1.30); Calcium 8.8 mg/dL (8.5-10.1); Chloride 104 mmol/L (98-107); Estimated GFR 61.61 (mL/min/1.73m2); Glucose 107 mg/dL (74-106); Potassium 3.9 mmol/L (3.5-5.1); Sodium 140 mmol/L (136-145); Total Protein 6.6 g/dL (6.4-8.2)
== END 2023-04-27 23:59 | disposition home or self-care (01) ==
LOC: INF 09:00
PROVIDERS: Visit Provider Internal Medicine Hematology & Oncology
DX: C20 Malignant neoplasm of rectum (principal); C78.00 Secondary malignant neoplasm of unspecified lung; Z45.2 Encounter for adjustment and management of vascular access device
CPT/HCPCS: 36591; 80053; 86900; 86901; 85025

== ENCOUNTER 2023-05-10 04:11 | Outpatient (RCR) | payer MEDICARE, OTHER, SELFPAY ==
[2023-04-28 00:03] VITALS: BP 164/99; PULSE 78; RESP 17; TEMP 36.5
[2023-05-10] VITALS (10 sets, daily range): BP systolic 109–126; BP diastolic 64–72; PULSE 84–111; RESP 16–19; TEMP 36.5–37; O2SAT 95–98
[2023-05-10] MEDS: Heparin 500 UNITS/5 ML SYRINGE IV (09:07)
[2023-05-10] MEDS: Normal Saline Flush 10 ML SYR IVP (09:07)
[2023-05-10 09:16] LABS: Abs Immature Grans 0.11 10^3/uL (0.0-0.06); Absolute Basophil Count 0.02 10^3/uL (0.0-0.2); Absolute Eosinophil Count 0.19 10^3/uL (0.0-0.7); Absolute Lymphocyte Count 2.25 10^3/uL (1.2-3.4); Basophils % 0.1; HCT 22.8 % (40.0-50.0); Immature Grans % 0.6; Lymphocytes % 12.1; MCH 24.9 pg (27.0-33.0); MCHC 29.8 % (32.0-36.0); MCV 84 fL (80-95); MPV 9.1 fL (8.0-11.0); Monocytes % 7.5; Neutrophils % 78.7; Platelet Count 478 10^3/uL (130-400); RBC 2.73 10^6/uL (4.36-5.78); RDW 18.6 % (11.8-14.1); RDW-SD 57.4 fL; WBC 18.59 10^3/uL (4.4-10.8)
[2023-05-10 09:33] LABS: ALT 67 U/L (16-63); AST 57 U/L (15-37); Alkaline Phosphatase 208 U/L (46-116); Anion Gap 10.4 mmol/L (3-11); BUN 41 mg/dL (7-18); Bilirubin, Total 0.3 mg/dL (0.2-1.0); CO2 22.6 mmol/L (21.0-32.0); CREATININE 2.4 mg/dL (0.70-1.30); Calcium 8.8 mg/dL (8.5-10.1); Chloride 102 mmol/L (98-107); Estimated GFR 32.27 (mL/min/1.73m2); Glucose 120 mg/dL (74-106); Potassium 5.4 mmol/L (3.5-5.1); Sodium 135 mmol/L (136-145); Total Protein 7.2 g/dL (6.4-8.2)
[2023-05-10 09:43] LABS: Absolute Monocyte Count 1.39 10^3/uL (0.1-0.8); Absolute Neutrophil Count 14.63 10^3/uL (1.2-6.7)
[2023-05-10 09:44] LABS: HGB 6.8 g/dL (13.5-17.5)
[2023-05-10 09:47] LABS: Diff Comment RBC Morph Reviewed; Polychromasia Present
== END 2023-05-28 23:59 | disposition home or self-care (01) ==
LOC: INF 04:11
PROVIDERS: Visit Provider Internal Medicine Hematology & Oncology
DX: C20 Malignant neoplasm of rectum (principal); C78.00 Secondary malignant neoplasm of unspecified lung; D64.9 Anemia, unspecified
CPT/HCPCS: 36430; 36591; 80053; 86850; 86900; 86901; 86920; 86945; 85025; P9016

== ENCOUNTER 2023-06-15 10:22 | Inpatient (IN) | payer OTHER, SELFPAY ==
--- NOTE | 2023-06-15 10:49 | W.PM.HP.N ---
Date of service: 06/15/23 Time of Service: 09:30 Assessment and Plan Assessment and plan (1) Cancer related pain: Status: Acute Assessment and plan: not well controlled on current regimen which seems unnecessarily complex and unfortunately has not been effective recently will simply to hydromorphone by cadd pump via his port for both long and short acting pain will take off fentanyl patches once pump is placed (2) Hospice care: Status: Acute Assessment and plan: He is here on symptom management. Once he is comfortable, will try to get him back home. Will see how quickly we can turn him around. (3) Colon cancer: Status: Chronic Assessment and plan: Metastatic (4) Familial adenomatous polyposis: Status: Acute Assessment and plan: reason for his cancer (5) H/O leukemia: Status: Acute Assessment and plan: in remission, is s/p bone marrow transplant is on jakufi (6) Hypoxemia: Status: Acute Assessment and plan: requiring oxygen now, does have lung mets (7) Rectal cancer metastasized to lung: Status: Acute (8) Bone marrow replaced by transplant: (9) Restless: Status: Acute (10) Delirium: Status: Acute Assessment and plan: will start risperidone odt to see if more effective than seroquel and/or haldol (11) Fecal incontinence: Status: Acute (12) Nephrostomy status: Status: Acute Assessment and plan: not new monitor History of Present Illness History of Present Illness Chief Complaint: metastatic rectal cancer Narrative: Horacio is a 47 yo man admitted to our local hospice on 06/07/23 with advanced metastatic rectal cancer. He has been followed by [facility] palliative care. Horacio has had a very rapid decline over the last 48 hrs. I saw him at his home this am before deciding to admit him to [facility] for hospice SYMPTOM MANAGMENT He was unable to speak. He was agitated. He was unable to take oral medications. He bit down on the morphine syringe; he bit down on the haldol syringe. His caregiver Nancy didn't think he got much of the medication into him. He was grimacing. He was moaning. He was very confused. He had been started on quetiapine yesterday but he is unable to swallow pills. He grimaced intermittently. He has fentanyl patches in place. They are not holding him. He had been ordered oxycodone and hydrocodone by his [facility] palliative care in addition to the fentanyl and morphine. These medications didn't seem to work, according to Nancy. He was agitated when the ambulance arrived to pick him up. They needed to call the fire department for extra help. By the time he arrived on Med Surg, he was calmer. He was wearing oxygen at 2L/min. (Nancy had mentioned that his O2 sats on [place] were in the 70s). He was trying to talk but we could not understand him. We decided to simplify his pain medication. He will be on a combination of hydromorphone CADD pump via his port and if he becomes dyspneic, we will use oral morphine concentrate for that. As for his agitation this am, his caregiver Nancy reported that for the last 2 days or so, he did not respond to haldol. My colleague Itzel Prajapati ACCOUNTING SPECIALIST saw Horacio yesterday and ordered quetiapine. He is not able to swallow tablets. We will try risperidone ODT. Over the last 48 hrs at home, Horacio has had multiple medication changes in both pain meds and delirium meds. He is being admitted so that he can have frequent medication adjustments and evaluation of his clinical situation. He also was unable to use the hospice medications available in his comfort pack, due to his biting down on syringes. Review of Systems Constitutional Constitutional: Reports daytime sleepiness, Reports fatigue, Reports frequent falls, Reports lethargy, Reports poor appetite, Reports weakness and Reports weight loss Eyes Eyes: Reports requires corrective lenses ENT Ears, Nose, Mouth, and Throat: Reports dry mouth and Reports disequilibrium Cardiovascular Cardiovascular: Reports lightheadedness, Reports dyspnea and Reports dyspnea on exertion Respiratory Respiratory: Reports dyspnea and Reports dyspnea on exertion Gastrointestinal Gastrointestinal: Reports early satiety and Reports fecal incontinence Genitourinary Genitourinary: Reports as per HPI Comments: has nephrostomy tubes on both sides Musculoskeletal Musculoskeletal: Reports abnormal gait, Reports muscle weakness and Reports stiffness Integumentary/Breasts Skin/Breast: Reports dry skin and Reports pruritus Neurologic Neurologic: Reports abnormal speech, Reports abnormal gait, Reports confusion, Reports frequent falls, Reports disequilibrium and Reports weakness Psychiatric Psychiatric: Reports anxiety and Reports confusion Endocrine Endocrine: Reports fatigue PFSH All Active Problems (Updated 06/15/23 @ 11:45 by Sarah Patton MD) Fecal incontinence (Acute) Nephrostomy status (Acute) placed in December 2022 Inability to speak (Acute) Restless (Acute) Delirium (Acute) Rectal cancer metastasized to lung (Acute) Hypoxemia (Acute) H/O leukemia (Acute) Familial adenomatous polyposis (Acute) Diarrhea (Acute) Cancer related pain (Acute) Hospice care (Acute) Psoas muscle strain (Acute) Intra-abdominal fluid (Acute) Bladder mass (Acute) Acute kidney injury (Acute) Transaminitis (Acute) Colon cancer (Chronic) Surgical History Bone marrow replaced by transplant Social History (Updated 06/15/23 @ 11:37 by Sarah Patton MD) Smoking/Tobacco Use Status: Never Smoking risk assessment performed?: Yes Alcohol Intake: current Alcohol Intake frequency: holidays/special occasions only Substance use type: marijuana Details: medical marijuana Caregiver/Support person: Yes Household members: family Housing: apartment Number of Children: 1 number of grandchildren: 0 Do you need help understanding health information?: Often Current gender identity: male What is your relationship status?: How often do you talk on the phone with friends or family?: three or more times per week How often do you get together with friends or relatives?: three or more times per week Panel score (0-1 are the most socially isolated patients): 1 What type of physical activity do you participate in: none, bed-bound and sedentary lifestyle Do you feel safe at home: Yes Do you feel safe in your relationship?: Yes Additional Social history: Horacio lives with his ex-, Nancy and her fiance Baron. Horacio and Nancy's daughter also lives with them; she's 23. There is no tension among them, per report. Meds Allergies and Home Medications Allergies Allergy/AdvReac Type Severity Reaction Status Date / Time morphine AdvReac Intermediate Nausea Unverified 01/12/23 21:03 Home Medications Medication Instructions Recorded Confirmed Type bupropion HCl 150 mg tablet,12 hr 150 mg PO BID 05/28/20 01/13/23 History sustained-release (Wellbutrin SR) lisinopril 10 mg tablet 20 mg PO QAM 05/28/20 01/13/23 History magnesium 250 mg tablet 250 mg PO BID 05/28/20 01/13/23 History prochlorperazine maleate 10 mg 10 mg PO Q6H PRN 05/28/20 01/13/23 History tablet (Compazine) sertraline 100 mg tablet 200 mg PO DAILY 09/07/22 01/13/23 History tamsulosin 0.4 mg capsule 0.4 mg PO DAILY 09/07/22 01/13/23 History ondansetron 8 mg disintegrating 8 mg PO Q8H PRN 09/08/22 01/13/23 History tablet oxycodone 5 mg tablet 10 - 20 mg (2 - 4 x 5 mg) PO Q3H 09/08/22 01/13/23 Rx PRN PRN #0 tabs lorazepam 1 mg tablet 1 mg PO Q4H PRN anxiety #10 tabs 06/06/23 Rx morphine concentrate 100 mg/5 mL See Rx Instructions PO Q1H PRN 06/06/23 Rx (20 mg/mL) oral solution pain #30 mL fentanyl 100 mcg/hr transdermal 1 patch transdermal Q72H #5 ea 06/13/23 Rx patch fentanyl 25 mcg/hr transdermal 1 patch transdermal Q72H #5 ea 06/13/23 Rx patch oxycodone 10 mg tablet 10 - 20 mg (1 - 2 x 10 mg) PO Q3H 06/14/23 Rx PRN PRN pain #30 tabs quetiapine 25 mg tablet (Seroquel) 25 mg PO TID PRN anxiety/agitation 06/14/23 Rx #30 tabs Exam Narrative Exam Narrative: slender, pale, confused, trying to interact and speak, unable to do so vs hr 88 rr 18 eyes anicteric heent mm are dry, hearing grossly intact neck no lad or jvd abd very slender, scar midline from umbilicus to pubic bone lungs ctab, no increased wob wearing oxygen cv regular, no murmur noted skin very pale, no lesions, scar as noted gu was incontinent of feces, has [address] with urine in both bags, circumscized ext loss of muscle mass neuro confused, struggling to speak, cannot communicate clearly psych didn't appear as anxious as I expected, cooperative Time Spent Time spent with Patient: >75 minutes Time was spent: preparing to see the patient(eg.review tests), obtaining and/or reviewing separately otained hiistory, ordering medications,tests, procedures, referring, communicating with other health long term care phlebotomist, counseling the patient and care coordination
[2023-06-15] MEDS: HYDROmorphone 100 MG in Normal Saline 240 ML IV (12:07)
[2023-06-15] MEDS: Fentanyl Patch Removal 2 EACH TD (12:40)
[2023-06-15] MEDS: LORazepam 2 MG/ML VIAL 0.5 MG IVP (13:32)
--- NOTE | 2023-06-15 14:49 | CHAPLAIN ---
Horacio is lying in bed, restless and figiting. His exwife, Nancy, and daughter, Vivi, are with him. Horacio has colon cancer and had a bone godinez transplant. Nancy is Horacio's HCA and has been taking care of him for a few years. They live together with Vivi, and Nancy's boyfriend. Horacio was admitted for symptom management, and Nancy some new medications have been ordered to see if his pain and restlessness can be better controlled. I brought a prayer shawl for Horacio, and introduced myself to Nancy and Vivi. Vivi said they have seen Horacio be really sick, and then get better, and that they've been through a lot with him. He was first sick in 2010, Nancy said.
[2023-06-15] MEDS: PROPOFOL 1,000 MG/100 ML BTL 1 MG IVPB (15:30)
--- NOTE | 2023-06-15 15:57 | W.PM.PROGNOT ---
Date of Service Date of service: 06/15/23 Time of Service: 14:50 Assessment and Plan Assessment and plan (1) Delirium: Status: Acute Assessment and plan: Severe. Beginning to respond to propofol drip. Issues with dosing in computer. Advised keep on giving him 10 mg (1 ml) every 10 minutes. He is more comfortable. (2) Rectal cancer metastasized to lung: Status: Acute (3) Cancer related pain: Status: Acute Assessment and plan: Continue hydromorphone (4) Sedated due to medication: Status: Acute Assessment and plan: Beginning to get some relief (5) Hospice care: Status: Acute Assessment and plan: Remains on hospice symptom management. Advised that I will return at any time to ensure that Horacio is comfortable. Subjective Subjective Patient reports: still having pain and shortness of breath; denies feels better or fever Interval history since last seen: Horacio is struggling with SEVERE terminal agitation. He is jumping with myoclonus. He is constantly moaning. We tried multiple interventions throughout the day--lorazepam caused him agitation (as expected, but we had to try once). His hydromorphone is at 4 mg/hr through his port; he appears to have more delirium and agitation than pain. He had multiple doses of risperidone and haldol. Nothing has brought him relief. I discussed palliative sedation with his DPOA/health care agent/ex-, Nancy who has cared for him since 2010. She agreed that we should avoid midazolam due to his adverse response to lorazepam and our concern for class effect. She agreed to a propofol drip with palliative sedation protocol in place. She read and signed the permission form after we discussed the plan. Prior to starting the medication, I spoke to Dr Jane Johnson to run the plan by her; she agreed with the necessity of this plan given his utter lack of response to anti-psychotics and his adverse response to benzodiazepines. Hospital production support developer Betty Lisa has been present several times throughout the day. Nursing has been at bedside nearly all the time since his admission. He has not had any real relief since I admitted him this am. The Med Surg staff called me to let me know that he needed a new plan from here out; I came over immediately. I explained that I will return in the night if needed to keep Horacio comfortable. Exam Narrative Exam Narrative: slender, pale, confused, moaning, twitching eyes anicteric heent mm are dry, hearing grossly intact neck no lad or jvd abd very slender, scar midline from umbilicus to pubic bone lungs wearing oxygen, no apnea cv feet are cool, with reduced DP and PT pulses skin very pale, no lesions, scar as noted gu was incontinent of feces, has [address] with urine in both bags ext loss of muscle mass neuro delirious, with myclonus Time Spent with Patient Time Spent with Patient: >50 minutes Time was spent: obtaining and/or reviewing separately otained hiistory, ordering medications,tests, procedures, referring, communicating with other health home health care coordinator, counseling the patient and care coordination
[2023-06-15] MEDS: Normal Saline Flush 10 ML SYR IVP ×2 (16:06→20:08)
[2023-06-15] MEDS: PROPOFOL 1,000 MG/100 ML BTL 18 MG IVPB (23:47)
[2023-06-16] MEDS: PROPOFOL 1,000 MG/100 ML BTL 21 MG IVPB (04:23)
[2023-06-16] MEDS: PROPOFOL 1,000 MG/100 ML BTL 22 MG IVPB (09:14)
[2023-06-16] MEDS: Normal Saline Flush 10 ML SYR IVP ×2 (09:17→21:17)
--- NOTE | 2023-06-16 10:52 | PGE_ITS ---
Date of Service Date of service: 06/16/23 Time of Service: 08:30 Assessment and Plan Assessment and plan (1) Sedated due to medication: Status: Acute Assessment and plan: Horacio is here on hospice symptom management for palliative sedation. This is only available in the inpatient setting. He will remain on symptom management until he dies. He did appear more comfortable today than he did yesterday, though I suspect he will need frequent adjustments to his medications until his , given how he has been progressing since yesterday am. (2) Nephrostomy status: Status: Acute Assessment and plan: Making much less urine today. Bags nearly empty after several hours. <20 cc/hr urine output (3) Inability to speak: Status: Acute Assessment and plan: Was not verbal prior to pall sedation started. Continues in non-verbal state. (4) Delirium: Status: Acute Assessment and plan: Terminal delirium still evident when sedation becomes ineffective. (5) Restless: Status: Acute Assessment and plan: Currently comfortable. Titration orders are in place, as needed. Propofol helping. (6) Rectal cancer metastasized to lung: Status: Acute Assessment and plan: Hydromorphone treating his pain adequately (7) Hypoxemia: Status: Acute Assessment and plan: On oxygen (8) Cancer related pain: Status: Acute Assessment and plan: On hydromorphone (9) Hospice care: Status: Acute Assessment and plan: Continue symptom management Subjective Subjective Patient reports: feels better Interval history since last seen: Horacio is more comfortable today than he was yesterday. He is on a combination of hydromorphone and propofol both IV through his port. Overnight, he was increased to 16 mg of hydromorphone and 210 mg of propofol. This was helping his pain and delirium until this am when he had another increase in his symptoms. We titrated him up over the last few hours. He is now on 250 mg of propofol and 18 mg of hydromorphone. He had some muscle stiffness and tightness prior to achieving his current level of comfort. His ex-/caregiver Nancy is a very observant caregiver. She reads his stiffness acurately as increased pain/delirium. Nancy's fiance, Baron, is also at the bedside. Horacio's daughter Vivi has not yet come in today as she is feeling overwhelmed by her father's impending . I wrote her a letter excusing her from work duties this week. Exam Narrative Exam Narrative: slender, pale, sedated, tight at first but relaxed at time of this note eyes anicteric heent mm are dry, hearing grossly intact neck no lad or jvd abd very slender, scar midline from umbilicus to pubic bone lungs wearing oxygen, no apnea cv feet are cool, with reduced DP and PT pulses skin very pale, no lesions, scar as noted gu was incontinent of feces, has [address] with urine in both bags ext loss of muscle mass neuro delirious, with myclonus Time Spent with Patient Time Spent with Patient: >50 minutes Time was spent: ordering medications,tests, procedures, referring, communicating with other health home care consultant, counseling the patient (his family) and care coordination
--- NOTE | 2023-06-16 12:56 | PDOC.CMPRO ---
Date of service: 06/16/23 Time of Service: 13:22 Care Management Progress Note Progress Note Text Progress Note Text: S/O: Horacio was lying in bed, and appeared comfortable when CM met with him. His ex , Nancy, was in the room visiting. She has been staying with him, and is very supportive. She stated that their daughter was here earlier today, but she is having a hard time with his passing. Per MD, Horacio is on palliative sedation, and will remain at [facility] for end of life care. Nancy stated that his final arrangements will be supported by [facility]. CM will continue to follow. A: Horacio is a 47yo male admitted to [facility] on 06/15/23 for hospice symptom management. P: Horacio will remain at [facility] for end of life care; he is currently on palliative sedation, which cannot be accommodated at home. His ex-, her fiance, and Horacio's daughter have been visiting today, and are all very supportive. CM will continue to support Horacio and his family during this difficult time.
[2023-06-16] MEDS: PROPOFOL 1,000 MG/100 ML BTL 25 MG IVPB (14:20)
--- NOTE | 2023-06-16 17:23 | CHAPLAIN ---
I've checked in with Horacio's family a couple of times today. He is sedated and appears to be much more calm than yesterday. Nancy, his ex-/caregiver is spending the night. Her fiance, Baron, spent some of the day here, and Horacio and Nancy's daughter, Vivi was here this evening. They are all very attentive to Horacio. Vivi wasn't sure if she would return today after seeing Horacio struggle to get comfortable yesterday, but she's back this evening. Nancy was sleeping the last time I stopped in.
[2023-06-16] MEDS: PROPOFOL 1,000 MG/100 ML BTL 27 MG IVPB (18:46)
[2023-06-16] MEDS: PROPOFOL 1,000 MG/100 ML BTL 32 MG IVPB (22:44)
[2023-06-17] MEDS: PROPOFOL 1,000 MG/100 ML BTL 33 MG IVPB (01:38)
[2023-06-17] MEDS: PROPOFOL 1,000 MG/100 ML BTL 34 MG IVPB ×2 (04:51→07:56)
--- NOTE | 2023-06-17 08:39 | W.PM.PROGNOT ---
Date of Service Date of service: 06/17/23 Time of Service: 08:39 Assessment and Plan Assessment and plan (1) Dying care: Status: Acute Assessment and plan: Actively dying. Caregivers in attendance. Symptoms currently well controlled, on 26 mg/hr of hydromorphone and 340 mg/hr of propofol. He is admitted for hospice as symptom management due to his being on palliative sedation, which is unavailable in the home. (2) Sedated due to medication: Status: Acute Assessment and plan: No evidence of terminal delirium or myclonus. Improved with medication. He is unresponsive. (3) Rectal cancer metastasized to lung: Status: Acute Assessment and plan: Reason for his admission to hospice. Due to FAP. thought to be due to his father's exposure to [place]. (4) Familial adenomatous polyposis: Status: Acute (5) Cancer related pain: Status: Acute Assessment and plan: Controlled now on high dose hydromorphone. (6) Hospice care: Status: Acute Assessment and plan: On symptom management due to his need for palliative sedation. Note that he has required frequent adjustments in both his hydromorphone and his propofol. (7) Minimally conscious state with low-level behavioral responses: Status: Acute Assessment and plan: Continue palliative sedation. Subjective Subjective Patient reports: no new complaints and shortness of breath; denies fever Interval history since last seen: Horacio is currently comfortable at 26 mg/hr of hydromorphone and 340 mg (34 ml) per hour of propofol. His caregivers Nancy and Baron are with him; they spent the night. He has had several episodes of apnea. He is breathing very shallowly and rapidly, but doesn't appear to be in respiratory distress. He has no furrowed brow, no grimace. His caregivers report he has not had any signs of pain for several hours. They are attentive and report symptoms as they arise. He is not having myoclonus, as he had been. Exam Narrative Exam Narrative: slender, pale, sedated, breathing shallowly and quickly eyes anicteric heent mmm neck no lad, does have visible pulse at neck abd very slender, scar midline from umbilicus to pubic bone, hypoactive bs lungs wearing oxygen, breathing rapidly and shallowly, no apnea during my visit but did have some episodes overnight cv feet are cool, with reduced DP and PT pulses skin very pale, no lesions, scar as noted gu has [address] with minimal concentrated urine in both bags ext loss of muscle mass neuro no myoclonus, not delirious today, sedated, minimally responsive psych no evidence of anxiety Time Spent with Patient Time Spent with Patient: 35-49 minutes Time was spent: obtaining and/or reviewing separately otained hiistory, referring, communicating with other health healthcare business analyst, counseling the patient (family) and care coordination
--- NOTE | 2023-06-18 07:48 | W.PM.DDS ---
Date of service: 06/17/23 Time of Service: 10:00 Discharge Plan Disposition Patient Disposition: Discharge Details Reason For Visit: Metastatic Rectal Cancer, Delirium Admit Date/Time: 06/15/23 10:22 Admit Provider: Sarah Patton Attending Provider: Sarah Patton Primary Care Provider: None,None Hospital Course Hospital Course: Horacio was admitted for symptom management for agitated delirium, unresponsive to home and oral medications. He was transitioned to palliative sedation protocol soon after admission; given his adverse response to benzodiazepines, he was started on propofol. He required frequent dose adjustments to both his pain medication of hydromorphone and his sedating medication. At the time of his , he was comfortable. I had seen Horacio less than an hour before his . Please see my progress note from 06/17. Discharge Data Discharge Date/Time-TO BE ENTERED AT DEPARTURE: 06/17/23 09:26 Discharge Sum: Prov Provider Primary care physician: Farnaz White NP Admitting clinician: Sarah Patton Attending physician on admission: Sarah Patton Consults: 06/15/23 10:16 Check And Transfer Beader Consult [CONS] Routine Consultation Status:: Follow-up needed Clarification:: Manage/follow per spec. Reason for consult:: pt has 23 yo daughter who is struggling Pronouncing clinician: nurse Discharge Sum: Diag Contributing Factors (1) Dying care: Contributing factors: ON palliative sedation protocol with propofol at time of his . Was comfortable. Terminal agitation had subsided. Pain was controlled. Family present and supported by nursing and fuel management handler and me, his attending. (2) Sedated due to medication: (3) Rectal cancer metastasized to lung: (4) Familial adenomatous polyposis: (5) Cancer related pain: (6) Hospice care: (7) Minimally conscious state with low-level behavioral responses: Discharge Sum: Summary Date and Time Admission Date: 06/15/23 Date of : 06/17/23 Time of : 09:26 Summary Details: Palliative sedation was effective in allowing Horacio to have a comfortable . Family was supportive and appreciative of this medication option, available only as inpatient. Additional Data Confirmation of as documented by pronouncing clinician: other (please see nurses' notes) Family: at bedside Attending/PCP notified?: Yes Attending Physician: Sarah Parada Ready Was code activated?: No Autopsy requested?: No supervisory examiner notified?: No Organ bank notified?: Yes Advance directives: Yes Hospice patient?: Yes
== END 2023-06-17 09:26 | disposition expired | DRG 948 ==
PROVIDERS: Admitting Provider Family Medicine; Visit Provider Family Medicine
DX: G89.3 Neoplasm related pain (acute) (chronic) (principal); Z94.81 Bone marrow transplant status; F05 Delirium due to known physiological condition; N17.9 Acute kidney failure, unspecified; C20 Malignant neoplasm of rectum; C78.00 Secondary malignant neoplasm of unspecified lung; C95.91 Leukemia, unspecified, in remission; Z51.5 Encounter for palliative care; Z95.828 Presence of other vascular implants and grafts; R15.9 Full incontinence of feces; Z93.6 Other artificial openings of urinary tract status; R45.1 Restlessness and agitation; R09.02 Hypoxemia; R19.7 Diarrhea, unspecified; R74.01 Elevation of levels of liver transaminase levels; R18.8 Other ascites; D13.91 Familial adenomatous polyposis; N32.9 Bladder disorder, unspecified; G25.3 Myoclonus; R47.9 Unspecified speech disturbances
CPT/HCPCS: 00123; J1170; J1171; J2060; J2704; J3490